=== PATIENT | female | born 1955 | race Caucasian/White ===

== ENCOUNTER 2020-01-28 15:21 | Emergency (ER) | payer MEDICARE, SELFPAY ==
--- NOTE | ~2020-01-28 | XR_ITS ---
XR ankle RT min 3V DATE: 01/28/2020 15:52 INDICATION: Fell 2 days ago. Pain, swelling, bruising of right ankle. TECHNIQUE: 4 views COMPARISON: None FINDINGS: There is a minimally displaced comminuted fracture of the lateral malleolus. There is overl benito lateral soft tissue swelling. The posterior malleolus and the medial malleolus are intact. Ankle mortise is preserved. Plantar calcaneal enthesopathy. Short fourth metatarsal bone. IMPRESSION: Minimally displaced comminuted fracture of the lateral malleolus Reviewed, dictated and finalized at location A.
[2020-01-28 15:30] VITALS: BP 101/61; PULSE 72; RESP 20; TEMP 36.9; O2SAT 100
--- NOTE | 2020-01-28 15:53 | ED.LOWEXIN ---
HPI - Extremity Injury (Lower) General Chief Complaint: Extremity Injury, Lower Stated Complaint: rt ankle injury Time Seen by Provider: 01/28/20 15:53 Source: patient and RN notes reviewed Mode of arrival: ambulatory Limitations: no limitations History of Present Illness HPI Narrative: 64-year-old female presents with concern for right ankle injury. Reports she tripped and fell on a wet parking lot 2 days ago. 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 Reports right ankle pain, swelling, bruising. She has been walking on the ankle since her injury. MD complaint: ankle injury Related Data Home Medications Medication Instructions Recorded Confirmed atorvastatin 40 mg PO HS 01/28/20 01/28/20 digoxin 125 mcg PO DAILY 01/28/20 01/28/20 hydrochlorothiazide 12.5 mg PO DAILY 01/28/20 01/28/20 metoprolol tartrate 100 mg PO DAILY 01/28/20 01/28/20 verapamil 120 mg PO DAILY 01/28/20 01/28/20 warfarin 2.5 mg PO DAILY 01/28/20 01/28/20 Allergies Allergy/AdvReac Type Severity Reaction Status Date / Time No Known Allergies Allergy Verified 01/28/20 15:37 Review of Systems Review of Systems: Narrative: CONSTITUTIONAL: Denies malaise, chills, sweats, or fever. CARDIOVASCULAR: Denies chest pain, palpitations RESPIRATORY: Denies dyspnea. SKIN: Reports bruising and swelling MUSCULOSKELETAL: Reports right ankle pain NEUROLOGIC: Denies numbness, weakness All systems reviewed & are unremarkable except as noted in HPI and below PMFSH Social History Social History Smoking status: Never smoker Alcohol intake: never Comments At time of signature, agree with nursing past medical, surgical, social and family history. There is no relevant family history pertinent to the presenting complaint Exam Narrative: Exam Narrative: GENERAL: Well-appearing, well-nourished, and in no acute distress. HEAD: Normocephalic, atraumatic. EYES: PERRLA, conjunctivae clear NECK: Supple. CHEST: Speaks in full sentences. No respiratory distress. HEART: Regular rate and rhythm. Normal and equal peripheral pulses. EXTREMITIES: Right ankle has normal strength and sensation, normal range of motion. Moderate ecchymosis to the lateral ankle and dorsal aspect of foot, lateral ankle edema. 5/5 strength with ankle and digit flexion and extension. Normal sensation with sensitivity to light touch and pain. No open wounds, no skin tenting, no devitalized tissue or atrophy, no trophic changes, no obvious deformity, alignment normal, no point tenderness, nearby joints and structures intact. Distal pulses palpable and equal bilaterally, skin warm, dry, pink. Capillary refill less than 3 seconds. SKIN: Warm, dry, no rash. NEURO: Alert and oriented x3. PSYCH: Normal mood and affect Course Course Emergency Course: Patient is aware of diagnosis, understands and agrees to treatment plan. Anticipatory guidance given. Patient agrees to follow-up as directed and is aware of reasons to seek care at the emergency department. Portions of this record may have been created with voice recognition software Vital Signs Vital signs: Vital Signs Temperature 98.5 F 01/28/20 15:30 Pulse Rate 72 01/28/20 15:30 Respiratory Rate 20 01/28/20 15:30 Blood Pressure 101/61 01/28/20 15:30 Pulse Oximetry 100 01/28/20 15:30 Temperature 98.5 F 01/28/20 15:30 Pulse Rate 72 01/28/20 15:30 Respiratory Rate 20 01/28/20 15:30 Blood Pressure 101/61 01/28/20 15:30 Pulse Oximetry 100 01/28/20 15:30 Reviewed. Procedures Orthopedic Splinting/Casting Injury #1: Splinting/Casting Date: 01/28/20 Splinting/Casting Time: 16:00 Side: right Lower Extremity Injury Location: ankle OCL: short leg Pre-Procedure Neuro Vascular Exam: normal Post-Procedure Neuro Vascular Exam: normal Other Orthopedic Equipment: crutches
== END 2020-01-28 16:30 | disposition home or self-care (01) ==
PROVIDERS: Emergency Provider Nurse Practitioner; PCP Internal Medicine
DX: S82.61XA Displaced fracture of lateral malleolus of right fibula, initial encounter for closed fracture (principal); W01.0XXA Fall on same level from slipping, tripping and stumbling without subsequent striking against object, initial encounter; Z91.81 History of falling; I48.91 Unspecified atrial fibrillation; E78.00 Pure hypercholesterolemia, unspecified; I10 Essential (primary) hypertension
CPT/HCPCS: 29515; 73610; 99214; G0463

== ENCOUNTER → 2020-12-24 16:07 | Outpatient (CLI) | payer MEDICARE, OTHER, SELFPAY ==
--- NOTE | ~2020-12-24 | XR_ITS ---
EXAMINATION: XR knee RT 3V DATE: 12/24/2020 16:47 INDICATION: One month of anterior and medial right knee pain TECHNIQUE: Weight bearing anteroposterior, lateral and sunrise views of the right knee were obtained COMPARISON: 10/03/2008 FINDINGS: Alignment is normal. No fracture. Mild joint space narrowing in the medial and patellofemoral compar tments and small marginal osteophytes in all 3 compartments. Soft tissues are unremarkable. No right knee joint effusion. IMPRESSION: 1. Negligible progression in still mild medial and patellofemoral compartment predominant tricompartm ental osteoarthritis. Reviewed, dictated and finalized at location A. TRANSFER TECHNICIAN IMPRESSION: 1. Negligible progression in still mild medial and patellofemoral compartment p redominant tricompartmental osteoarthritis.
== END ==
PROVIDERS: Visit Provider Internal Medicine
DX: M25.561 Pain in right knee (principal)
CPT/HCPCS: 73562

== ENCOUNTER → 2020-12-26 09:57 | Outpatient (CLI) | payer MEDICARE, OTHER, SELFPAY ==
--- NOTE | ~2020-12-26 | MR_ITS ---
EXAMINATION: MR lumbar spine wo con DATE: 12/26/2020 10:42 INDICATION: Low back pain. Malignant neoplasm of the spinal cord. Tumor removed 14 years ago. TECHNIQUE: Magnetic resonance imaging (MRI) of the lumbar spine was performed without intravenous con trast. Sequences included sagittal T2-weighted FSE, sagittal T2-weighted FS FSE, sagittal T1-weighted FSE, and axial T2-weighted FSE. COMPARISON: None FINDINGS: There is 6 degrees dextrocurvature of thoracolumbar spine. There is 3 mm anterolisthesis of L3 on L4 and 6 mm anterolisthesis of L4 on L5. Vertebral body heights are normal. There is mildly de creased disc at L2-L3 and L3-L4 and L4-L5. There is ligamentum flavum hypertrophy at the disc levels from L2-L3 through L4-L5. The spinal cord is thin with increased T2-weighted signal intensity at T12, consistent with myelomalacia. The conus medullaris is at L1. The following disc levels are specifica lly discussed: L1-L2: The disc does not extend beyond the endplate margin. There is moderate bilateral facet joint o steoarthritis. There is no neural foraminal stenosis. There is no central canal stenosis. L2-L3: The disc is bulging and has an annular fissure. There is severe bilateral facet joint osteoart hritis. There is mild bilateral neural foraminal stenosis. There is mild central canal stenosis. L3-L4: The disc is bulging. There is severe bilateral facet joint osteoarthritis. There is mild bilat eral neural foraminal stenosis. There is mild central canal stenosis. L4-L5: The disc is bulging. There is severe bilateral facet joint osteoarthritis. There is moderate b ilateral neural foraminal stenosis. There is moderate central canal stenosis. L5-S1: The disc is mildly bulging. There is severe bilateral facet joint osteoarthritis. There is mil d bilateral neural foraminal stenosis. There is no central canal stenosis. IMPRESSION: 1. Moderate lumbar spondylosis. 2. 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 Reviewed, dictated and finalized at location A. UREUX PRINTER
== END ==
PROVIDERS: PCP Internal Medicine; Visit Provider Internal Medicine
DX: C72.0 Malignant neoplasm of spinal cord (principal); M47.896 Other spondylosis, lumbar region
CPT/HCPCS: 72148

== ENCOUNTER 2022-01-30 14:37 | Outpatient (CLI) | payer MEDICARE, SELFPAY ==
[2022-01-30 16:14] LABS: Albumin Level 4.9 g/dL (3.5-5.1); Anion Gap 9 mmol/L (8-16); Blood Urea Nitrogen 22 mg/dL (7-17); Calcium 10.7 mg/dL (8.4-10.2); Carbon Dioxide 28 mmol/L (22-30); Chloride 101 mmol/L (98-107); Estimated Glomerular Filt Rate > 60; Glucose 105 mg/dL (65-110); Phosphorus 3.6 mg/dL (2.5-4.5); Potassium 4.1 mmol/L (3.4-5.0); Sodium 138 mmol/L (137-145)
[2022-01-30 16:31] LABS: Parathyroid Intact 135.9 pg/mL (7.5-53.5)
[2022-01-30 16:32] LABS: Vitamin D 25 Hydroxy 41.8 ng/mL
[2022-01-30 16:50] LABS: Thyroid Stimulating Hormone 0.641 uIU/mL (0.465-4.680)
[2022-02-01 20:06] LABS: Glutamic acid decarboxylase AA <5 IU/mL (<5)
[2022-02-02 04:53] LABS: Ionized Calcium 5.5 mg/dL (4.8-5.6)
[2022-02-02 06:12] LABS: C-Peptide 2.44 ng/mL (0.80-3.85)
== END 2022-01-30 14:38 | disposition home or self-care (01) ==
PROVIDERS: PCP Internal Medicine; Visit Provider Internal Medicine Endocrinology, Diabetes & Metabolism
DX: E83.52 Hypercalcemia (principal); M85.80 Other specified disorders of bone density and structure, unspecified site; E11.65 Type 2 diabetes mellitus with hyperglycemia; I48.91 Unspecified atrial fibrillation
CPT/HCPCS: 36415; 80069; 82306; 82330; 83970; 84443; 84681; 86341

== ENCOUNTER → 2022-09-01 11:03 | Outpatient (CLI) | payer MEDICARE, OTHER, SELFPAY ==
--- NOTE | ~2022-09-01 | MM_ITS ---
EXAMINATION: MM screening lynette BI w lloyd HISTORY: Screening TECHNIQUE: Craniocaudal and mediolateral oblique 3-D tomosynthesis images were obtained and synthetic 2-D images were generated. CAD analysis was submitted and interpreted. COMPARISON: Comparison to multiple prior studies sequentially, with oldest reviewed study dated 08/17. BREAST PARENCHYMAL COMPOSITION: There are scattered areas of fibroglandular density. FINDINGS: Bilateral breast asymmetries are stable. There is no evidence of suspicious mass, calcifica tion, or architectural distortion to suggest malignancy in either breast. There has been no suspiciou s interval change. IMPRESSION: 1. No mammographic evidence of malignancy. 2. Recommend routine screening mammography in one year. BI-RADS Category 1: Negative Reviewed, dictated and finalized at location A.
--- NOTE | ~2022-09-01 | DEXA_ITS ---
Bone Density Report Name: AUREA GALVAN Age: 67 Sex: Female Ethnicity: White Date of : 1955 Indication: osteopenia; prior fracture; asthma or emphysema; postmenopausal Referring Provider: CHANTELLE, WESTON Study: Bone densitometry was performed. Exam Date: September 01, 2022 Accession number: [id number] Bone Density: Region BMD T-score Z-score Classification AP Spine (L1-L4) 0.922 -1.1 0.9 Osteopenia Femoral Neck (Left) 0.650 -1.8 0.0 Osteopenia Total Hip (Left) 0.751 -1.6 -0.1 Osteopenia Femoral Neck (Right) 0.734 -1.0 0.7 Normal Total Hip (Right) 0.816 -1.0 0.4 Normal Total Hip Mean 0.784 -1.3 0.2 Osteopenia World Health Organization criteria for BMD impression classify patients as: Normal (T-score at or above -1.0), Osteopenia (T-score between -1.0 and -2.5), or Osteoporosis (T-score at or below -2.5). 10-year Fracture Risk(1): Major Osteoporotic Fracture 16% Hip Fracture 2.5% Reported Risk Factors: [place] (), Neck BMD=0.650, BMI=28.3, previous fracture (1) FRAX(R) Version 3.08. Fracture probability calculated for an untreated patient. Fracture probability may be lower if the patient has received treatment. Previous Exams: Region Exam Age BMD T-score BMD Change BMD Change Date g/cm2 vs Baseline vs Previous AP Spine(L1-L4) 09/01/2022 67 0.922 -1.1 0.076* 0.076* 02/03/2019 63 0.847 -1.8 Total Hip(Left) 09/01/2022 67 0.751 -1.6 0.010 0.010 02/03/2019 63 0.740 -1.7 Total Hip(Right) 09/01/2022 67 0.816 -1.0 -0.025 -0.025 02/03/2019 63 0.842 -0.8 *Denotes significance at 95% confidence level, LSC for AP Spine = 0.022 g/cm2, LSC for Total Hip = 0.027 g/cm2 Clinical Information Provided by Patient: Has had a low trauma fracture Has used the following medications: Vitamin D, MTV Has the following medical conditions: Asthma or Emphysema Patient maximum height was 63.0 Menopause Age: 51 No regular weight bearing exercise Drinks caffeinated beverages Onset of menses at age 10 Number of children 1 Impression: The patient has low bone mass, based on the Left Femoral Neck T-score. The patient has an estimated ten-year risk of hip fracture of 2.5% and an estimated ten-year risk of major fracture of 16%, based on the WHO FRAX algorithm. The patient has risk factors, including: previous fracture. No significant bone loss was observed. Discussion:
== END ==
PROVIDERS: PCP Internal Medicine; Visit Provider Nurse Practitioner
DX: Z12.31 Encounter for screening mammogram for malignant neoplasm of breast (principal); M85.88 Other specified disorders of bone density and structure, other site; M85.852 Other specified disorders of bone density and structure, left thigh; M85.851 Other specified disorders of bone density and structure, right thigh
CPT/HCPCS: 77063; 77067; 77080

== ENCOUNTER 2022-10-24 08:05 | Outpatient (CLI) | payer MEDICARE, SELFPAY ==
[2022-10-24 09:03] LABS: Anion Gap 5 mmol/L (8-16); Blood Urea Nitrogen 15 mg/dL (7-17); Carbon Dioxide 29 mmol/L (22-30); Chloride 106 mmol/L (98-107); Estimated Glomerular Filt Rate > 60; Glucose 139 mg/dL (65-110); Potassium 4.3 mmol/L (3.4-5.0); Sodium 140 mmol/L (137-145)
[2022-10-24 09:54] LABS: Digoxin < 0.5 ng/mL (0.8-2.0)
== END 2022-10-24 08:06 | disposition home or self-care (01) ==
PROVIDERS: Anesthesiology; PCP Internal Medicine; Visit Provider Surgery
DX: E11.65 Type 2 diabetes mellitus with hyperglycemia (principal); Z51.81 Encounter for therapeutic drug level monitoring; Z01.818 Encounter for other preprocedural examination
CPT/HCPCS: 36415; 80048; 80162

== ENCOUNTER 2022-10-29 01:45 | Day surgery (SDC) | payer MEDICARE, SELFPAY ==
[2022-10-20 11:23] VITALS: BMI 28.4
--- NOTE | 2022-10-20 11:39 | PC.NURSE ---
Report to the Outpatient Waiting Room, entrance under the green pavilion located off [facility], at time _1130_ on date _10/29/22_. Planned Procedure Time: _1:30 PM_. Time changes happen often and if your time is changed the preop area will call you the afternoon before. - You and your visitor will be asked to self-screen and do not enter if you have any COVID symptoms. - Only one visitor is requested with a max of two and NO children visitors are allowed at this time. - The patient visitor may be requested to leave or wait in car when not with patient due to distancing restrictions. - A mask is optional within the hospital. Patients may have clear liquids (water, carbonated beverages, clear teas, apple juice) until 3 hours prior to surgery (1030 AM) with a maximum of 20 ounces. - No food from midnight until time of surgery Take the following medications with a SIP of water the morning of surgery: _DIGOXIN, METOPROLOL, VERAPAMIL, BREO INHALER_ Medications to discontinue per DR. SOSA - _PRADAXA 3 DAYS PRIOR TO SURGERY, Date to take last dose 10/25/22_ Please no make-up, nail slovenian, hairspray, perfume, deodorant, or body powder the day of surgery. No jewelry (including any body piercings) or valuables the day of surgery, leave them at home. Please take a shower or bath the night before, or the morning of, surgery with an antibacterial soap. Wear comfortable, loose fitting clothing. - Jewelry must be removed prior to entering the operating room. Rings and piercings that are not removed may be cut off. - The hospital will not accept responsibility for valuables. - Please leave all valuables, including medications, at home the day of surgery. If you are going home after surgery, a licensed truck driver instructor must drive you home. - NO public transportation without another adult if you receive anesthesia. - We recommend that an adult stay with you for 24 hours following discharge. - We also recommend that you do not drive, make important decision, drink alcoholic beverages, or take any drugs that were not prescribed by your health care provider for at least 24 hours after your discharge time. Follow any additional instructions given to you from your surgeon. If you or anyone in your household have experienced Covid symptoms in the past week, please notify your surgeon or the nurse liaison at the phone number below for possible testing. Telephone instructions given to _PATIENT_and asked if any additional questions and then verbalized understanding. Patient advised to call surgeon office or pre surgery nurse liaison [phone] if any additional questions.
[2022-10-29] VITALS (8 sets, daily range): BP systolic 126–157; BP diastolic 59–80; PULSE 59–77; RESP 16; TEMP 36.3–37.1; O2SAT 98–100
[2022-10-29] MEDS: LACTATED RINGERS 1,000 ML 30 ML IV CONT (11:30)
[2022-10-29 11:31] LABS: Glucose Point of Care 120 mg/dl (65-105)
--- NOTE | 2022-10-29 11:45 | WPDANESEPPF ---
Anes - Initial Pre Proc Eval Procedure: Operation Date: 10/29/22 13:30 Proposed Procedures p Excision of Left Posterior Shoulder Mass - Shan Mcqueen DO Date/Time: 10/29/22 11:45 Surgeon: Shan Mcqueen DO Pre Op Diagnosis: left shoulder mass 10cm Patient Data Age: 67 Gender: F Height: 1.57 m Weight: 70 kg Last Vital Signs Temp 37.1 C 10/29/22 11:30 Pulse 77 10/29/22 11:30 Resp 16 10/29/22 11:30 BP 147/65 H 10/29/22 11:30 Pulse Ox 100 10/29/22 11:30 O2 Del Method Room Air 10/29/22 11:30 Allergies Allergy/AdvReac Type Severity Reaction Status Date / Time topiramate [From TopiraLogRhythm] AdvReac Intermediate HAIR LOSS Verified 10/29/22 11:39 Home Medications Medication Instructions Recorded Confirmed Type atorvastatin 40 mg tablet 40 mg PO HS 01/28/20 10/29/22 History digoxin 125 mcg (0.125 mg) tablet 125 mcg PO DAILY 01/28/20 10/29/22 History hydrochlorothiazide 12.5 mg tablet 12.5 mg PO DAILY 01/28/20 10/29/22 History metoprolol tartrate 100 mg tablet 200 mg PO BID 01/28/20 10/29/22 History verapamil 120 mg tablet 120 mg PO DAILY 01/28/20 10/29/22 History dabigatran etexilate 75 mg capsule 75 mg PO BID 12/24/20 10/29/22 History (Pradaxa) levalbuterol tartrate 45 2 inh inhalation Q6H PRN shortness 03/01/21 10/29/22 Rx mcg/actuation aerosol inhaler of breath or wheezing #15 grams flash glucose scanning reader #1 ea 07/23/21 10/29/22 Rx (FreeStyle Mateo 14 Day [place]) flash glucose sensor (FreeStyle See Rx Instructions .Route 06/24/22 10/29/22 Rx Mateo 14 Day Sensor kit) .COMPLEX #1 kit Breo Ellipta 100 mcg-25 mcg/dose 1 inh inhalation Q24H #60 ea 07/22/22 10/29/22 Rx powder for inhalation (fluticasone furoate-vilanterol) empagliflozin 25 mg tablet See Rx Instructions .Route 10/10/22 12/14/22 Rx (Jardiance) .COMPLEX #90 tabs metformin 500 mg tablet 1,000 mg PO BIDWMEAL 90 days #360 09/22/22 10/29/22 Rx tabs Laboratory Tests 10/29/22 11:27 POC Capillary Glucose 120 mg/dl H mg/dl (65-105) Patient hx anesthesia problems: none Family hx anesthesia problems: none Results Review: All pre-operative results and documents have been reviewed as part of the pre-operative evaluation. [facility] Past Medical History Medical History (Updated 10/29/22 @ 11:50 by Eagle Fabian MD) Afib Antiplatelet or antithrombotic long-term use Asthma Body mass index (BMI) 23 or greater (08/23/19) Chronic atrial fibrillation Essential (primary) hypertension Headache Hx of fci use of blood thinners Hypercalcemia Hyperglycemia Hypertension Mass of skin of left shoulder TONEY (obstructive sleep apnea) Osteopenia Paroxysmal atrial fibrillation Pure hypercholesterolemia, unspecified Seasonal allergies Sleep apnea Spinal cord ependymoma Spinal stenosis of lumbar region Trigger finger, right middle finger Type 2 diabetes mellitus Type 2 diabetes mellitus with hyperglycemia, without long-term current use of insulin Vision loss Surgical History Surgical History History of surgical procedure on eye proper using laser Family History Family History Father Family history of chronic obstructive pulmonary disease, Onset Age: 87 Patient's father is Sibling Family history of atrial fibrillation Mother Patient's mother is Acute myocardial infarction, Onset Age: 64 Other Family history of tuberculosis Social History Social History (Reviewed 09/30/22 @ 13:59 by Juan Lei [facility]) Smoking status: Never smoker Second hand tobacco smoke exposure: No Alcohol intake: never Substance use: never Substance use type: does not use Living arrangements: with family Additional occupation/education comments: kang Spiritual care concerns: No Anes - Eval Final PreProcedu
--- NOTE | 2022-10-29 12:30 | PM.IMHP ---
H&P: HPI History of Present Illness Date/Time: 10/29/22 12:30 Chief Complaint: Left posterior shoulder mass Narrative: This is a 67-year-old woman who presents with a shoulder mass. She now presents for excision of the 10 cm left posterior shoulder mass. She reports no changes since last seen in the office. Review of Systems Review of Systems: All systems reviewed & are unremarkable except as noted in HPI and below Constitutional: Constitutional: Denies chills, Denies fever(s), Denies headache(s) and Denies weight loss Eyes: Eyes: Denies change in vision ENT: Denies dizziness, Denies headache(s), Denies neck mass and Denies throat swelling Cardiovascular: Cardiovascular: Denies chest pain, Denies lightheadedness and Denies dyspnea Respiratory: Respiratory: Denies cough, Denies dyspnea and Denies wheezing Gastrointestinal: Gastrointestinal: Denies abdominal pain, Denies change in bowel habits, Denies nausea and Denies vomiting Genitourinary: Genitourinary: Denies hematuria and Denies dysuria Musculoskeletal: Musculoskeletal: Reports as per HPI Integumentary/Breasts: Skin/Breast: Reports as per HPI Neurologic: Denies dizziness and Denies headache(s) Allergic/Immunologic: Allergic/Immunologic: Denies throat swelling and Denies wheezing [facility] Past Medical History Medical History (Updated 10/29/22 @ 11:50 by Eagle Fabian MD) Afib Antiplatelet or antithrombotic long-term use Asthma Body mass index (BMI) 23 or greater (08/23/19) Chronic atrial fibrillation Essential (primary) hypertension Headache Hx of senior living use of blood thinners Hypercalcemia Hyperglycemia Hypertension Mass of skin of left shoulder TONEY (obstructive sleep apnea) Osteopenia Paroxysmal atrial fibrillation Pure hypercholesterolemia, unspecified Seasonal allergies Sleep apnea Spinal cord ependymoma Spinal stenosis of lumbar region Trigger finger, right middle finger Type 2 diabetes mellitus Type 2 diabetes mellitus with hyperglycemia, without long-term current use of insulin Vision loss Surgical History Surgical History History of surgical procedure on eye proper using laser Family History Family History Father Family history of chronic obstructive pulmonary disease, Onset Age: 87 Patient's father is Sibling Family history of atrial fibrillation Mother Patient's mother is Acute myocardial infarction, Onset Age: 64 Other Family history of tuberculosis Social History Social History Smoking status: Never smoker Second hand tobacco smoke exposure: No Alcohol intake: never Substance use: never Substance use type: does not use Living arrangements: with family Additional occupation/education comments: kang Spiritual care concerns: No Meds Home Medications and Allergies Home Medications Medication Instructions Recorded Confirmed Type atorvastatin 40 mg tablet 40 mg PO HS 01/28/20 10/29/22 History digoxin 125 mcg (0.125 mg) tablet 125 mcg PO DAILY 01/28/20 10/29/22 History hydrochlorothiazide 12.5 mg tablet 12.5 mg PO DAILY 01/28/20 10/29/22 History metoprolol tartrate 100 mg tablet 200 mg PO BID 01/28/20 10/29/22 History verapamil 120 mg tablet 120 mg PO DAILY 01/28/20 10/29/22 History dabigatran etexilate 75 mg capsule 75 mg PO BID 12/24/20 10/29/22 History (Pradaxa) levalbuterol tartrate 45 2 inh inhalation Q6H PRN shortness 03/01/21 10/29/22 Rx mcg/actuation aerosol inhaler of breath or wheezing #15 grams flash glucose scanning reader #1 ea 07/23/21 10/29/22 Rx (FreeStyle Mateo 14 Day [place]) flash glucose sensor (FreeStyle See Rx Instructions .Route 06/24/22 10/29/22 Rx Mateo 14 Day Sensor kit) .COMPLEX #1 kit Breo Ellipta 100 mcg-25 mcg/dose 1 inh inhalation Q24H #60
--- NOTE | 2022-10-29 12:32 | WPDHPUPDATE1 ---
History and Physical Update Update Date/Time: 10/29/22 12:32 History and Physical has been reviewed, including an updated exam of the patient. There are NO changes in the patient's condition. Risks, benefits, and alternatives have been discussed and questions answered. Patient agrees to proceed with procedure.
[2022-10-29] MEDS: ceFAZolin 2 GM/D5W 50 ML 2 GM/50 ML BAG IVPB (12:48)
[2022-10-29] MEDS: BUPIVACAINE/EPINEPHRINE 0.5% 10 ML VIAL INFILTRATE (13:13)
--- NOTE | 2022-10-29 13:41 | W.PM.PROC2 ---
Procedure Note - Detailed Date of Procedure 10/29/22 Pre-op Diagnosis left shoulder mass 10cm Post-op Diagnosis Same Procedure Performed 1. Excision of 10 cm left posterior shoulder mass 2. Layered closure Surgeon Shan Mcqueen, DO Anesthesia General and Local (0.5% bupivacaine with epinephrine) Indications This is a 67-year-old woman who presented with an enlarging mass on her left posterior shoulder region. The mass has been present for at least a year. This appeared to be likely a lipoma. Discussions were made with the patient about treatment options and decision was made to proceed with excision of 10 cm left posterior shoulder mass. Findings The left posterior shoulder mass was completely excised. This had a lipomatous consistency. No other surrounding abnormalities were noted. A layered closure was performed using 2-0 Vicryl simple interrupted deep dermal sutures followed by 4-0 Monocryl running subcuticular suture. Description of Procedure Procedure as well as risks, benefits, and alternatives were discussed with the patient. Written consent was obtained and placed in chart prior to procedure. Patient was brought back to surgical suite. She was placed in supine position on the operating table. Time-out was done to confirm patient and procedure. She was then intubated by the anesthesia department. She was then repositioned to right lateral decubitus position. Her left shoulder area was prepped and draped in sterile fashion using chlorhexidine prep. 0.5% bupivacaine with epinephrine was infiltrated locally around the mass. A 6 cm oblique incision was made directly over the mass using a 15 blade scalpel. Electrocautery was used for hemostasis and for dissection around the mass. The mass was carefully dissected completely free from the surrounding subcutaneous attachments. It was completely excised and sent to the lab for pathology. The wound bed was then inspected and hemostasis was achieved with electrocautery. No other masses were identified. The skin edges came together without any significant tension. The deep dermis and subcutaneous space was then reapproximated using 2-0 Vicryl simple interrupted sutures. The skin of the incision was then approximated using 4-0 Monocryl running subcuticular suture. Exofin glue was then applied on top. The patient was then awakened from anesthesia, extubated, and transferred to recovery. Estimated Blood Loss 5 Pathology Yes (10 cm left posterior shoulder mass) Complications No immediate complications Condition Stable Disposition Same day [facility] Billing Surgery - Charge Forward: Surgery Billing
[2022-10-29 13:53] LABS: Glucose Point of Care 98 mg/dl (65-105)
== END 2022-10-29 15:40 | disposition home or self-care (01) ==
PROVIDERS: PCP Internal Medicine; Visit Provider Surgery
PROC: (CPT 24071; principal; 2022-10-29 13:30)
DX: D17.22 Benign lipomatous neoplasm of skin and subcutaneous tissue of left arm (principal); J45.909 Unspecified asthma, uncomplicated; I48.20 Chronic atrial fibrillation, unspecified; I10 Essential (primary) hypertension; G47.33 Obstructive sleep apnea (adult) (pediatric); E78.00 Pure hypercholesterolemia, unspecified; E11.9 Type 2 diabetes mellitus without complications; Z79.51 Long term (current) use of inhaled steroids; Z79.84 Long term (current) use of oral hypoglycemic drugs; Z79.01 Long term (current) use of anticoagulants
CPT/HCPCS: 24071; 82948; 88304; 88365; A9270; J0690; J1100; J2250; J2405; J2704; J3010; J7120

== ENCOUNTER → 2023-09-22 09:58 | Outpatient (CLI) | payer MEDICARE, OTHER, SELFPAY ==
--- NOTE | ~2023-09-22 | XR_ITS ---
EXAMINATION: XR lumbar spine 2-3V DATE: 09/22/2023 10:56 INDICATION: Low back pain TECHNIQUE: Flexion and extension lateral views of the lumbar spine were obtained. COMPARISON: 04/05/2006 FINDINGS: There are 8 mm of anterolisthesis of L4 on L5 in flexion and extension. There are 4 mm of a nterolisthesis of L3 on L4, new since the comparison examination. There is mild loss of intervertebra l disc space height at L4-5. The vertebral body heights are maintained. There is no fracture. There i s moderate facet joint osteoarthritis of the mid and lower lumbar spine. IMPRESSION: 1. Mild lumbar spondylosis without acute findings. Reviewed, dictated and finalized at location L. [employer]
--- NOTE | ~2023-09-22 | MR_ITS ---
MRI of the lumbar spine Clinical History: Radiculopathy Technique: Axial T2-weighted images, and sagittal T1-weighted, T2-weighted, and T2 fat-sat images wer e acquired. COMPARISON: 12/26/2020 Findings: No acute fracture seen. Stable 6 mm anterolisthesis of L4 over L5. Minimal grade 1 anteroli sthesis of L3 over L4 noted. No suspicious bone marrow signal abnormality seen. At L1-L2, there is no disc bulge or herniation. There is mild facet arthropathy. No central canal ilya nosis or neural foraminal narrowing. At L2-L3, there is mild disc bulge with moderate facet arthropathy. No central canal stenosis. There is moderate to severe bilateral neural foraminal narrowing. L3-L4, there is disc bulge with severe facet arthropathy. No chey central canal stenosis. There is m oderate bilateral neural foraminal narrowing. At L4-L5, disc bulge/uncovering and severe facet arthropathy result in severe spinal canal stenosis/t hecal sac compression. There is severe bilateral neural foraminal compromise. At L5-S1, there is minimal disc bulge with moderate to severe facet arthropathy. No central canal ilya nosis or neural foraminal narrowing. Paravertebral soft tissues are unremarkable. Impression: 6 mm anterolisthesis of L4 over L5. Minimal grade 1 anterolisthesis of L3 over L4. Severe degenerative spondylosis at L4-L5. Moderate to advanced degenerative spondylosis at L2-L3, L3- L4, and L5-S1. Reviewed, dictated and finalized at [facility]. ODS ANALYST DATA PROCESSING Impression: 6 mm anterolisthesis of L4 over L5. Minimal grade 1 anterolisthesis of L3 over L4. Severe degenerative spondylosis at L4-L5. Moderate to advanced degenerative spo ndylosis at L2-L3, L3-L4, and L5-S1.
== END ==
PROVIDERS: PCP Internal Medicine; Visit Provider Neurological Surgery
DX: M43.06 Spondylolysis, lumbar region (principal); M47.817 Spondylosis without myelopathy or radiculopathy, lumbosacral region; M54.16 Radiculopathy, lumbar region
CPT/HCPCS: 72100; 72148

== ENCOUNTER 2023-12-23 08:02 | Outpatient (CLI) | payer MEDICARE, SELFPAY ==
--- NOTE | ~2023-12-23 | MR_ITS ---
MRI of the thoracic spine Clinical History: Gait abnormality Technique: Axial T2-weighted and gradient images, and sagittal T1-weighted, T2-weighted, and STIR virgilio ges were acquired. Findings: There is no fracture or subluxation of the thoracic spine. Vertebral bodies maintain normal height and alignment. No suspicious bone marrow signal reality seen. Probable intraosseous hemangiom as noted. No significant disc bulge or herniation identified at any thoracic level. No spinal canal stenosis or cord compression identified. No epidural mass or collection seen. Paravertebral soft tissues are unremarkable. No abnormal postcontrast enhancement identified. Impression: No significant abnormality seen. Reviewed, dictated and finalized at [facility]. CTOR OF CONVENTION SERVICES Impression: No significant abnormality seen.
== END 2023-12-23 08:03 ==
LOC: MICIMG 08:04
PROVIDERS: PCP Neurological Surgery; Visit Provider Neurological Surgery
DX: R26.81 Unsteadiness on feet (principal); Z01.818 Encounter for other preprocedural examination
CPT/HCPCS: 72157; A9577

== ENCOUNTER 2024-05-10 10:49 | Outpatient (CLI) | payer MEDICARE, SELFPAY ==
--- NOTE | ~2024-05-10 | MM_ITS ---
EXAMINATION: MM screening [facility] BI w lloyd HISTORY: Screening mammogram TECHNIQUE: Craniocaudal and mediolateral oblique 3-D tomosynthesis images were obtained and synthetic 2-D images were generated. CAD analysis was submitted and interpreted. COMPARISON: 09/01/2022, 02/03/2019, 09/18/2015 BREAST PARENCHYMAL COMPOSITION:Not Dense. There are scattered areas of fibroglandular density. FINDINGS: There are multiple small low-density circumscribed masses bilaterally. No overtly suspiciou s mass, calcification, or architectural distortion are identified in either breast to suggest maligna ncy. There has been no suspicious interval change. IMPRESSION: No mammographic evidence of malignancy. Recommend routine screening mammography in one year. BI-RADS Category 2: Benign finding(s). Reviewed, dictated and finalized at [facility].
== END 2024-05-10 10:50 ==
LOC: MICIMG 10:51
PROVIDERS: PCP Obstetrics & Gynecology Gynecology; Visit Provider Obstetrics & Gynecology Gynecology
DX: Z12.31 Encounter for screening mammogram for malignant neoplasm of breast (principal)
CPT/HCPCS: 77063; 77067

== ENCOUNTER 2024-05-23 00:55 | Day surgery (SDC) | payer MEDICARE, SELFPAY ==
[2024-05-11 14:57] VITALS: BMI 27.8
--- NOTE | 2024-05-17 12:44 | PC.NURSE ---
Spoke with PATIENT regarding medications. Pt. verbalizes understanding that the last dose of PRADAXA is to be taken on 05/20/2024 and the Endoscopist will instruct them when to restart after the procedure.
[2024-05-23 07:26] VITALS: BP 135/84; PULSE 73; RESP 18; TEMP 36.1; O2SAT 100
[2024-05-23] MEDS: LACTATED RINGERS 1,000 ML 150 ML IV CONT (07:35)
--- NOTE | 2024-05-23 07:52 | WPDANESEPPF ---
Anes - Initial Pre Proc Eval Procedure: Operation Date: 05/23/24 08:30 Proposed Procedures p Screening Colonoscopy - Kingston Massey MD Date/Time: 05/23/24 07:52 Surgeon: Kingston Massey MD Pre Op Diagnosis: Neoplasm screening Patient Data Age: 69 Gender: F Height: 1.6 m Weight: 71.2 kg Last Vital Signs Temp 97 F L 05/23/24 07:26 Pulse 73 05/23/24 07:26 Resp 18 05/23/24 07:26 BP 135/84 05/23/24 07:26 Pulse Ox 100 05/23/24 07:26 O2 Del Method Room Air 05/23/24 07:26 Allergies Allergy/AdvReac Type Severity Reaction Status Date / Time topiramate [From [employer]] AdvReac Intermediate HAIR LOSS Verified 05/23/24 07:23 Home Medications Medication Instructions Recorded Confirmed Type atorvastatin 40 mg tablet 40 mg PO HS 01/28/20 05/11/24 History digoxin 125 mcg (0.125 mg) tablet 125 mcg PO DAILY 01/28/20 05/23/24 History metoprolol tartrate 100 mg tablet 200 mg PO BID 01/28/20 05/23/24 History fluticasone propionate 50 1 spray intranasal BID #16 grams 03/11/23 05/11/24 Rx mcg/actuation nasal spray,suspension (Flonase Allergy Relief) metformin 500 mg tablet 500 mg PO DAILY #90 tabs 07/23/23 05/11/24 Rx flash glucose scanning reader #1 ea 10/29/23 02/24/24 Rx (FreeStyle [place] [employer]) flash glucose sensor (FreeStyle #3 kits 11/04/23 02/24/24 Rx Mateo 14 Day Sensor kit) empagliflozin 25 mg tablet See Rx Instructions .Route 12/31/23 05/11/24 Rx (Jardiance) .COMPLEX #90 tabs dabigatran etexilate 150 mg capsule 150 mg PO BID 05/11/24 05/23/24 History fluticasone furoate 100 1 inh inhalation Q24H PRN 05/11/24 05/11/24 History mcg-vilanterol 25 mcg/dose Shortness Of Breath inhalation powder (Breo Ellipta) losartan 100 mg tablet 100 mg PO DAILY 05/11/24 05/11/24 History paroxetine HCl 10 mg tablet 10 mg PO DAILY 05/11/24 05/11/24 History verapamil 120 mg 24 hr 80 mg PO QPM 05/11/24 05/11/24 History capsule,extended release Patient hx anesthesia problems: none Family hx anesthesia problems: none Results Review: All pre-operative results and documents have been reviewed as part of the pre-operative evaluation. [facility] Past Medical History Medical History Afib Antiplatelet or antithrombotic long-term use Asthma Body mass index (BMI) 23 or greater (08/23/19) Chronic atrial fibrillation Essential (primary) hypertension Headache Hx of fdc use of blood thinners Hypercalcemia Hyperglycemia Hypertension Mass of skin of left shoulder TONEY (obstructive sleep apnea) Osteopenia Paroxysmal atrial fibrillation Pure hypercholesterolemia, unspecified Seasonal allergies Sleep apnea Spinal cord ependymoma Spinal stenosis of lumbar region Trigger finger, right middle finger Type 2 diabetes mellitus Type 2 diabetes mellitus with hyperglycemia, without long-term current use of insulin Vision loss Surgical History Surgical History H/O excision of mass excision of 10 cm left posterior shoulder mass, layered closure 10/29/22 History of surgical procedure on eye proper using laser Family History Family History Father Family history of chronic obstructive pulmonary disease, Onset Age: 87 Patient's father is Sibling Family history of atrial fibrillation Mother Patient's mother is Acute myocardial infarction, Onset Age: 64 Other Family history of tuberculosis Social History Social History Smoking status: Never smoker Second hand tobacco smoke exposure: No Alcohol intake: current Substance use: current Substance use type: does not use Lack of Transportation: No Lack of Food: Never True Current Housing: I Have Housing Concerned About Future H
--- NOTE | 2024-05-23 08:05 | PM.HPGS ---
History of Present Illness History of Present Illness Consent: Risks, benefits, and alternatives have been discussed and questions answered. Patient agrees to proceed with procedure. Chief complaint: Neoplasm screening Narrative: Oneida Pollack is a 69 year old female here for colonoscopy, last one 2012 Review of Systems Review of Systems: All systems reviewed & are unremarkable except as noted in HPI and below PMFSH Past Medical History Medical History (Updated 05/23/24 @ 08:05 by Kingston Massey MD) Afib Antiplatelet or antithrombotic long-term use Asthma Body mass index (BMI) 23 or greater (08/23/19) Chronic atrial fibrillation Colon cancer screening Essential (primary) hypertension Headache Hx of half-way use of blood thinners Hypercalcemia Hyperglycemia Hypertension Mass of skin of left shoulder TONEY (obstructive sleep apnea) Osteopenia Paroxysmal atrial fibrillation Pure hypercholesterolemia, unspecified Seasonal allergies Sleep apnea Spinal cord ependymoma Spinal stenosis of lumbar region Trigger finger, right middle finger Type 2 diabetes mellitus Type 2 diabetes mellitus with hyperglycemia, without long-term current use of insulin Vision loss Surgical History Surgical History H/O excision of mass excision of 10 cm left posterior shoulder mass, layered closure 10/29/22 History of surgical procedure on eye proper using laser Family History Family History Father Family history of chronic obstructive pulmonary disease, Onset Age: 87 Patient's father is Sibling Family history of atrial fibrillation Mother Patient's mother is Acute myocardial infarction, Onset Age: 64 Other Family history of tuberculosis Social History Social History Smoking status: Never smoker Second hand tobacco smoke exposure: No Alcohol intake: current Substance use: current Substance use type: does not use Lack of Transportation: No Lack of Food: Never True Current Housing: I Have Housing Concerned About Future Housing: No Difficulty Paying Gas/Electric Bills: No Difficulty Paying for Meds: No Currently Unemployed: No Education: High School Diploma/GED Difficulty w/ Childcare or Family Care: No Living arrangements: with family Occupation/Education: occupation Additional occupation/education comments: [employer] Gender identity (if verbalized by the patient): Female Sexual Orientation (if Verbalized by the Patient): Straight or Heterosexual Spiritual care concerns: No Meds Home Medications and Allergies Home Medications Medication Instructions Recorded Confirmed Type atorvastatin 40 mg tablet 40 mg PO HS 01/28/20 05/11/24 History digoxin 125 mcg (0.125 mg) tablet 125 mcg PO DAILY 01/28/20 05/23/24 History metoprolol tartrate 100 mg tablet 200 mg PO BID 01/28/20 05/23/24 History fluticasone propionate 50 1 spray intranasal BID #16 grams 03/11/23 05/11/24 Rx mcg/actuation nasal spray,suspension (Flonase Allergy Relief) metformin 500 mg tablet 500 mg PO DAILY #90 tabs 07/23/23 05/11/24 Rx flash glucose scanning reader #1 ea 10/29/23 02/24/24 Rx (FreeStyle Mateo 2 [place]) flash glucose sensor (FreeStyle #3 kits 11/04/23 02/24/24 Rx Mateo 14 Day Sensor kit) empagliflozin 25 mg tablet See Rx Instructions .Route 12/31/23 05/11/24 Rx (Jardiance) .COMPLEX #90 tabs dabigatran etexilate 150 mg capsule 150 mg PO BID 05/11/24 05/23/24 History fluticasone furoate 100 1 inh inhalation Q24H PRN 05/11/24 05/11/24 History mcg-vilanterol 25 mcg/dose Shortness Of Breath inhalation powder (Breo Ellipta) losartan 100 mg tablet 100 mg PO DAILY 05/11/24 05/11/24 History paroxetine HCl 10 mg tablet 10 mg PO DAILY 05/11/24 05/11/24 History vera
[2024-05-23 08:29] VITALS: BP 95/44; PULSE 72; RESP 22; O2SAT 97
[2024-05-23 08:39] VITALS: BP 112/62; PULSE 67; RESP 18; O2SAT 100
[2024-05-23 08:49] VITALS: BP 119/64; PULSE 66; RESP 19; O2SAT 98
== END 2024-05-23 08:58 | disposition home or self-care (01) ==
PROVIDERS: Referring Provider Neurological Surgery; Visit Provider Internal Medicine Gastroenterology
PROC: 0DJD8ZZ Inspection of Lower Intestinal Tract, Via Natural or Artificial Opening Endoscopic (ICD-10-PCS; CPT 45378; principal; 2024-05-23 08:30)
DX: Z12.11 Encounter for screening for malignant neoplasm of colon (principal); K63.5 Polyp of colon; K57.30 Diverticulosis of large intestine without perforation or abscess without bleeding; J45.909 Unspecified asthma, uncomplicated; I10 Essential (primary) hypertension; E83.52 Hypercalcemia; G47.33 Obstructive sleep apnea (adult) (pediatric); I48.0 Paroxysmal atrial fibrillation; E78.00 Pure hypercholesterolemia, unspecified; G95.89 Other specified diseases of spinal cord; E11.65 Type 2 diabetes mellitus with hyperglycemia; Z79.84 Long term (current) use of oral hypoglycemic drugs; Z79.51 Long term (current) use of inhaled steroids; Z98.890 Other specified postprocedural states; Z82.49 Family history of ischemic heart disease and other diseases of the circulatory system
CPT/HCPCS: 45385; 45380; 88305; J2704; J7120

== ENCOUNTER 2024-06-01 12:09 | Emergency (ER) | payer MEDICARE, SELFPAY ==
--- NOTE | ~2024-06-01 | XR_ITS ---
EXAMINATION: XR hand LT min 3V DATE: 06/01/2024 13:38 INDICATION: Left hand and third finger pain post fall TECHNIQUE: Posteroanterior, oblique and lateral views of the left hand were obtained. COMPARISON: None. FINDINGS: Diffuse osteopenia. Bone alignment is normal. The left fourth and fifth metacarpals are likely develo pmentally short. No fracture. Polyarticular osteoarthritis, severe at the left second and third dista l interphalangeal joints, moderate severity at the first interphalangeal, fourth and fifth distal int erphalangeal and third metacarpophalangeal joints and mild at majority the remaining joints in the le ft hand and wrist. There is mild soft tissue swelling about the hand most prominent at the base of th e third digit. IMPRESSION: 1. No acute osseous abnormality. 2. Polyarticular osteoarthritis, moderate to severe at the distal interphalangeal joints. 3. Prominent diffuse osteopenia. Reviewed, dictated and finalized at location A. IMPRESSION: 1. No acute osseous abnormality. 2. Polyarticular osteoarthritis, moderate to severe at the distal interphalange al joints. 3. Prominent diffuse osteopenia.
--- NOTE | ~2024-06-01 | XR_ITS ---
EXAMINATION: XR knee LT 3V DATE: 06/01/2024 13:38 INDICATION: Left knee pain post fall TECHNIQUE: Anteroposterior, oblique and crosstable lateral views of the left knee were obtained COMPARISON: None. FINDINGS: Alignment is normal. No fracture. Joint spaces appear normal on nonweightbearing imaging. No joint e ffusion/layering lipohemarthrosis. Soft tissues are unremarkable. IMPRESSION: 1. No left knee joint effusion or osseous abnormality. Reviewed, dictated and finalized at location A.
--- NOTE | ~2024-06-01 | XR_ITS ---
Clinical Indication: Rib pain PA and lateral views of the chest, and AP/oblique views of the right ribs: Comparison: 04/28/2019 Findings: The lungs are clear, without evidence of focal consolidation or pleural effusion. Cardiome diastinal silhouette is stable, enlarged. Bones and soft tissues are unremarkable. Impression: Clear lungs. Stable cardiomegaly. No rib fracture seen. Reviewed, dictated and finalized at location . Impression: Clear lungs. Stable cardiomegaly. No rib fracture seen.
[2024-06-01 12:29] VITALS: BP 120/78; PULSE 66; RESP 16; TEMP 36.6; O2SAT 100
--- NOTE | 2024-06-01 13:18 | ED.FALL ---
HPI - Fall General Chief Complaint: Fall Stated Complaint: Fall Time Seen by Provider: 06/01/24 12:38 History of Present Illness HPI Narrative: 69-year-old female history of type 2 diabetes, AFib anticoagulated on Pradaxa, hypertension, and right footdrop due to lumbar spinal stenosis, presents to the emergency room for multiple injuries sustained in a mechanical ground level fall last night. Patient states he was attempting to prevent herself from falling over her dog last night she fell backwards twisting her left knee and striking her right ribs on the floor. complains of pain to her 3rd and 4th fingers on the left hand, left knee, right sided chest wall. Related Data Home Medications Medication Instructions Recorded Confirmed atorvastatin 40 mg tablet 40 mg PO HS 01/28/20 05/11/24 digoxin 125 mcg (0.125 mg) tablet 125 mcg PO DAILY 01/28/20 05/23/24 metoprolol tartrate 100 mg tablet 200 mg PO BID 01/28/20 05/23/24 dabigatran etexilate 150 mg capsule 150 mg PO BID 05/11/24 05/23/24 fluticasone furoate 100 1 inh inhalation Q24H PRN 05/11/24 05/11/24 mcg-vilanterol 25 mcg/dose Shortness Of Breath inhalation powder (Breo Ellipta) losartan 100 mg tablet 100 mg PO DAILY 05/11/24 05/11/24 paroxetine HCl 10 mg tablet 10 mg PO DAILY 05/11/24 05/11/24 verapamil 120 mg 24 hr 80 mg PO QPM 05/11/24 05/11/24 capsule,extended release Allergies Allergy/AdvReac Type Severity Reaction Status Date / Time topiramate [From Topiragen] AdvReac Intermediate HAIR LOSS Verified 06/01/24 12:39 Review of Systems Review of Systems: ROS unremarkable except for noted in HPI PMFSH Past Medical History Medical History Afib Antiplatelet or antithrombotic long-term use Asthma Body mass index (BMI) 23 or greater (08/23/19) Chronic atrial fibrillation Colon cancer screening Essential (primary) hypertension Headache 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 Hypercalcemia Hyperglycemia Hypertension Mass of skin of left shoulder TONEY (obstructive sleep apnea) Osteopenia Paroxysmal atrial fibrillation Pure hypercholesterolemia, unspecified Seasonal allergies Sleep apnea Spinal cord ependymoma Spinal stenosis of lumbar region Trigger finger, right middle finger Type 2 diabetes mellitus Type 2 diabetes mellitus with hyperglycemia, without long-term current use of insulin Vision loss Surgical History Surgical History H/O excision of mass excision of 10 cm left posterior shoulder mass, layered closure 10/29/22 History of surgical procedure on eye proper using laser Family History Family History Father Family history of chronic obstructive pulmonary disease, Onset Age: 87 Patient's father is Sibling Family history of atrial fibrillation Mother Patient's mother is Acute myocardial infarction, Onset Age: 64 Other Family history of tuberculosis Social History Social History Smoking status: Never smoker Second hand tobacco smoke exposure: No Alcohol intake: current Substance use: current Substance use type: does not use Lack of Transportation: No Lack of Food: Never True Current Housing: I Have Housing Concerned About Future Housing: No Difficulty Paying Gas/Electric Bills: No Difficulty Paying for Meds: No Currently Unemployed: No Education: High School Diploma/GED Difficulty w/ Childcare or Family Care: No Living arrangements: with family Occupation/Education: occupation Additional occupation/education comments: [employer] Gender identity (if verbalized by the patient): Female Sexual Orientation (if Verbalized by the Patient): Straight or Heterosexual Spiritual care concerns: No Exam Narrative: GENERAL: Well-a
[2024-06-01 14:15] VITALS: BP 145/75; PULSE 90; RESP 14; O2SAT 99
[2024-06-01 14:45] VITALS: BP 132/87; PULSE 80; RESP 19; O2SAT 97
== END 2024-06-01 14:45 | disposition home or self-care (01) ==
PROVIDERS: Emergency Provider Nurse Practitioner Family; PCP Internal Medicine
DX: S20.211A Contusion of right front wall of thorax, initial encounter (principal); S80.02XA Contusion of left knee, initial encounter; S60.032A Contusion of left middle finger without damage to nail, initial encounter; I48.0 Paroxysmal atrial fibrillation; I10 Essential (primary) hypertension; E11.9 Type 2 diabetes mellitus without complications; E78.00 Pure hypercholesterolemia, unspecified; J45.909 Unspecified asthma, uncomplicated; G47.33 Obstructive sleep apnea (adult) (pediatric); M85.80 Other specified disorders of bone density and structure, unspecified site; Z79.84 Long term (current) use of oral hypoglycemic drugs; Z79.899 Other long term (current) drug therapy; Z79.02 Long term (current) use of antithrombotics/antiplatelets; W18.39XA Other fall on same level, initial encounter
CPT/HCPCS: 71046; 71100; 73130; 73562; 99284

== ENCOUNTER 2024-08-01 08:00 | Outpatient (RCR) | payer MEDICARE, SELFPAY ==
--- NOTE | 2024-07-15 08:56 | OTOPEVAL1 ---
Assessment and note entered by BRADLEY White/Anoop, CATHIET OT Evaluation Information 07/15/24 Assessment Status Evaluation Diagnosis [id number] Subjective Information Patient fell 06/16/24 injuring her left middle finger. X-rays were negative for fracture. She reports residual pain, soreness, and stiffness that limits functional use of her left hand. Specifically gripping, pinching, and a cylindrical grasp on objects. She is avoiding using this finger at this time. She is right handed. Reported Pain Level Pain Score 2: Self Report Additional Pain Score Comments Patient reports she has constant ache, soreness in the left middle finger. She reports when she tries to use her finger, a cylindrical grasp on a cup for instance, she is unable to put pressure through that finger to grasp the cup due to pain. Assessment OT Clinical Summary Patient referred to OT following left middle finger injury about a month ago. She presents with residual stiffness, weakness, and pain that limits return to functional gripping and pinching with the left hand for ADLs. Skilled OT indicated for use of modalities, therapeutic exercise, and therapeutic activities to facilitate reduced pain, improved ROM, and improved strength of the left hand. Plan of Care Interventions Therapeutic Exercise,Manual Therapy,Ultrasound, Paraffin OT Services Indicated Yes Treatment Frequency and 1x/week for 6 visits Duration These treatments will address the objective and functional deficits as defined above. The patient will be advanced safely and appropriately in order for the patient to progress towards his/her prior level of function. Additional exercises will be introduced and as well as a comprehensive home exercise program upon discharge, if needed, ?to ensure carryover of functional gains achieved in the clinic. This treatment plan has been reviewed and agreement upon by the patient.
--- NOTE | 2024-07-15 08:56 | OPREHPOC ---
Outpatient Therapy Plan of Care This is a Multidisciplinary Plan of Care that may contain components documented by all disciplines (PT, OT, and ST.) OT Problem 1 OT Problem #1 Knowledge Deficit OT Goal 1 Goal / Goal Update 1. Patient to be independent with instructed materials. Target Visit 6 OT Problem 2 OT Problem #2 Pain OT Goal 1 Goal / Goal Update 1. Patient to report reduced pain in the left hand to 0/10 at rest and 4/10 at worst . OT Problem 3 OT Problem #3 Impaired Range of Motion OT Goal 1 Goal / Goal Update 1. Patient to be able to make a fist, touching all finger tips to the palm. 2. Patient to be able to make a hook fist, measuring 1 cm gap or less between the finger tips and the distal palmar crease. Target Visit 6 OT Problem 4 OT Problem #4 Impaired Strength OT Goal 1 Goal / Goal Update 1. 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
--- NOTE | 2024-08-08 10:07 | OTOPDC ---
Assessment and note entered by Marcellus Kohler, OTR/L, CHT OT Discharge Notification 08/08/24 OT Clinical Summary Patient was being seen for OT x4 visits for left middle finger sprain following a fall. She called today to cancel her remaining visits and requested to be discharged due to her passing away. Patient continued to experience pain with lateral stress on the ulnar side to the the PIP joint of the finger. She was independent with HEP. D/C OT at this time.
== END 2024-08-08 11:51 | disposition home or self-care (01) ==
LOC: ANHOT 08:00
PROVIDERS: PCP Internal Medicine; Visit Provider Internal Medicine
DX: S69.90XA Unspecified injury of unspecified wrist, hand and finger(s), initial encounter (principal)
CPT/HCPCS: 97018; 97110; 97140; 97165

== ENCOUNTER 2025-06-15 15:45 | Emergency (ER) | payer MEDICARE, SELFPAY ==
--- NOTE | ~2025-06-15 | CT_ITS ---
EXAMINATION: CT brain wo con DATE: 06/15/2025 16:15 INDICATION: Head injury post fall TECHNIQUE: Computed tomography (CT) of the head was performed without intravenous contrast. Sagittal and coronal reconstructions were performed. The mA was adjusted according to patient size. Iterative reconstruction technique was employed. The dose-length product was 605.33 mGy-cm. COMPARISON: head CT dated 06/06/2011 FINDINGS: Right frontal scalp hematoma along the superolateral right orbital rim. No fracture. No acute intracr anial hemorrhage, acute infarction or abnormal extra axial fluid collection. There is moderate scatte red white matter hypoattenuation consistent with chronic small vessel ischemic disease. Ventricles ar e normal and symmetric. No mass/mass effect. Changes of bilateral intraocular lens replacement. The o rbits and mastoid air cells are normal. Moderate mucosal thickening in the sphenoid sinuses which dem onstrates thickened sclerotic madrigal consistent with chronic sinusitis. IMPRESSION: 1. No fracture or acute intracranial process. 2. Moderate scattered mesenteric white matter hypoattenuation consistent with chronic small vessel is chemic disease. 3. Chronic sphenoid sinusitis. Reviewed, dictated and finalized at location A. IMPRESSION: 1. No fracture or acute intracranial process. 2. Moderate scattered mesenteric white matter hypoattenuation consistent with c hronic small vessel ischemic disease. 3. Chronic sphenoid sinusitis.
--- NOTE | ~2025-06-15 | XR_ITS ---
EXAMINATION: XR wrist RT 2V DATE: 06/15/2025 16:25 INDICATION: Right wrist injury post fall TECHNIQUE: Posteroanterior and lateral views of the right wrist were obtained. 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 Impacted extra articular fracture of the di stal right radial metaphysis resulting in mild dorsal angulation with 12 degrees dorsal tilt of the d istal articular surface. Minimal distraction of a lucent ulnar styloid avulsion fracture across the b ase of the ulnar styloid process. No other fractures identified. Polyarticular osteoarthritis, modera te severity at the third metacarpophalangeal joint and mild at the right wrist and many of the visual ized joints in the right hand. IMPRESSION: 1. Dorsally impacted extra-articular fracture of the distal right radius. 2. Nondisplaced ulnar styloid avulsion fracture. Reviewed, dictated and finalized at location A.
--- NOTE | ~2025-06-15 | XR_ITS ---
EXAMINATION: XR hand LT min 3V DATE: 06/15/2025 16:25 INDICATION: Left thumb pain TECHNIQUE: Posteroanterior, oblique and lateral views of the left hand were obtained. COMPARISON: None. FINDINGS: Likely developmentally short fourth and fifth metacarpals. Bone alignment is otherwise normal. No acu te fracture. Diffuse osteopenia. Polyarticular osteoarthritis, severe at the second and third distal interphalangeal joints, moderate severity at the first interphalangeal, fourth and fifth distal inter phalangeal and third proximal interphalangeal joints as well as at the third metacarpophalangeal join t and first carpal metacarpal joint. Mild osteoarthritis at the wrist, triscaphe and many of the melissa ining metacarpophalangeal and interphalangeal joints. Soft tissues are unremarkable. IMPRESSION: 1. Moderate to severe polyarticular osteoarthritis at the left hand. No acute osseous abnormality. Reviewed, dictated and finalized at location A. IMPRESSION: 1. Moderate to severe polyarticular osteoarthritis at the left hand. No acute o sseous abnormality.
--- NOTE | ~2025-06-15 | CT_ITS ---
EXAMINATION: CT cervical spine wo con DATE: 06/15/2025 16:15 INDICATION: Anticoagulated patient post fall with head injury TECHNIQUE: Computed tomography (CT) of the cervical spine was performed without intravenous contrast. The mA was adjusted according to patient size. Iterative reconstruction technique was employed. The dose-length product was 178.57 mGy-cm. COMPARISON: None FINDINGS: 12 degrees cervicothoracic dextrocurvature. Sagittal alignment is normal. Vertebral body heights are normal. No fracture. Mild to moderate osteoarthritis at the atlantoaxial articulation. Moderate disc height loss at C5-C6. Mild disc height loss at C4-C5 and C6-C7. Small posterior endplate osteophytes without significant central canal stenosis at C4-C5 and C5-C6. Severe bilateral uncovertebral osteoar thritis at C5-C6. Minimal to mild uncovertebral osteoarthritis throughout the remainder of the cervic al spine. Multilevel severe bilateral cervical facet osteoarthritis, left more prominent than right. Moderate neural foraminal stenosis on the left at C4-C5 and bilaterally at C5-C6. Mild neural from st enosis at many of the remaining cervical levels. Cervical soft tissues are unremarkable. Visualized a pices of lungs are clear. Visualized portion of the cervical soft tissues are unremarkable. IMPRESSION: 1. Mild to moderate cervical spondylosis. No acute osseous abnormality. Reviewed, dictated and finalized at location A.
--- NOTE | ~2025-06-15 | XR_ITS ---
EXAMINATION: XR shoulder RT min 2V DATE: 06/15/2025 16:25 INDICATION: Right shoulder injury TECHNIQUE: AP internally and externally rotated and transscapular Y views of the right shoulder were obtained. COMPARISON: None FINDINGS: Normal alignment. No fracture.Mild right glenohumeral osteoarthritis. Moderate right acromioclavicul ar osteoarthritis. Visualized portion of the right lung are clear with no pleural effusion or pneumot horax. Soft tissues are unremarkable. IMPRESSION: The right glenohumeral and moderate acromioclavicular osteoarthritis. No acute osseous abnormality. Reviewed, dictated and finalized at location A.
--- OUTSIDE RECORDS SUMMARY | 2025-06-15 15:47 | XMS_ITS | Clinical Summary ---
Author Organization [facility] Address [address] [place] [id number] Care Team Providers Care Solar Consultant Name Role Phone Unavailable Primary Care Provider Unavailabl e Social History Tobacco Use Types Packs/Day Years Used Date Smoking Tobacco: Never Assessed Comments Unknown Sex and Gender Information Value Date Recorded Sex Assigned at Not on file Legal Sex Female 7:19 PM CDT Gender Identity Not on file Sexual Orientation Not on file Plan of Treatment Health Maintenance Due Date Last Done Comments Colorectal Cancer Screening Colonoscopy (10 Years) 1953 Hepatitis C 1971 DTaP, Tdap and Td Vaccines ( 1 - Tdap) 02/11/1972 Mammogram Screening 1993 Pneumococcal Vaccine: 50+ Ye ars (1 of 1 - PCV) 2003 Zoster Vaccines (1 of 2) 2003 Dexa Scan (General) 2018 COVID-19 Vaccine ( - 2023-2 5 season) 2024 RSV Immunization or 60+ Years (1 - 1-dose 75+ series) 02/11/2028 Meningococcal B Vaccine Aged Out No l onger eligible based on patient's age to complete this topic Meningococcal Vaccine Aged Out No tee antonella eligible based on patient's age to complete this topic RSV Immunizations Under 20 Months Aged Out No longer eligible based on patient's age to complete this topic
--- OUTSIDE RECORDS SUMMARY | 2025-06-15 15:47 | XMS_ITS | Clinical Summary ---
Author Organization [facility] [employer] Address [address] [address] Care Team Providers Care Customer Success Advocate Name Role Phone Nasir Eduardo Anoop RODRIGUEZ Primary Care Provider [phone] Source Comments [facility] [employer],non-owned Affiliates and Associated Physician Practices is amultiple site organization consisting of ambulatory clinics and hospital sitesin [place], [place], [place] and [place]. This disclosure is being madepursuant to the Care Everywhere program and may not contain all information available regarding this patient. Last updated 18.[facility] [employer] Allergies Active Allergy Reactions Criticality Noted Date Comments Topiramate Other 09/25/2015 Hair loss Medications * Be aware that medications may not be up to date on this document. Alwaysverify current medications with the patient. acetaminophen (TYLENOL) 500 MG tablet Take 500 mg by mouth every 6 hours PRN Active albuterol HFA (PROAIR HFA) 108 (90 BASE) MCG/ACT inhaler Inhale 2 Puffs by mouth every 6 hours PRN Active ascorbic acid (VITAMIN C) 250 MG tablet Take 250 mg by mouth once daily Active PARoxetine (PAXIL) 10 MG tablet Take 10 mg by mouth once daily Active risedronate Sodium (ACTONEL) 150 MG tablet Take 150 mg by mouth every 30 days Active Ergocalciferol (VITAMIN D2 PO)Indications: take 50,000 units every 7 days Take 1.25 mg by mouth Two times a week Reasons: take 50,000 units every 7 days Active fluticasone-skyler anterol (BREO ELLIPTA) 100-25 MCG/INH inhaler Inhale 1 puff by mouth once daily Administer at the same time each day. Rinse mouth after using Active verapamil CR (ISOPTIN-SR) 120 MG tablet TAKE 1 TABLET BY MOUTH EVERY DAY 90 tablet 4 0 Active hydroCHLOROthia zide (MICROZIDE) 12.5 MG capsule TAKE 1 CAPSULE BY MOUTH EVERY DAY 90 capsule 4 0 Active losartan (COZAAR) 100 MG tablet Please specify directions, refills and quantity 90 tablet 0 Active dabigatran (PRADAXA) 150 MG capsule Take 1 (one) capsule by mouth 2 times daily 180 capsule 4 1 Active atorvastatin (LIPITOR) 40 MG tablet TAKE 1 TABLET BY MOUTH EVERYDAY AT BEDTIME 90 tablet 4 1 Active digoxin (LANOXIN) 0.125 MG tablet Take 1 (one) tablet by mouth once daily 90 tablet 4 1 Active metoprolol tartrate (LOPRESSOR) 100 MG tablet Take 2 (two) tablets by mouth 2 times daily 360 tablet 4 1 Active Active Problems Patient Care Coordination No te Formatting of this note migh t be different from the original. Sheriffs Officer- Dr. Riley Bush Problem Noted Date Diagnosed Date Type 2 diabetes mellitus 03/24/2018 Overview (10/07/2019): 04/03 A1c 7.2 Non-rheumatic tricuspid valve insufficiency 06/2017 Non-rheumatic aortic valve insufficiency 016 Mixed hyperlipidemia 09/25/2015 Overview (12/11/2020): 11/04 Cholesterol 148 HDL 51 LDL 68 triglyceride 176, AST 26 ALT 32 10/04 Cholesterol 159 HDL 50 LDL 71 triglyceride 192, AST 26 ALT 33 glucose 156 10/03 Cholesterol 242 HDL 49 LDL 149 triglyceride 221, AST 30 ALT 36 glucose 99 03/03 Cholesterol 230 HDL 48 LDL 134 triglyceride 240, AST 27 ALT 38 glucose 160 04/01 Cholesterol 269 HDL 45 LDL 150 triglyceride 370, AST 34 ALT 42 glucose 112 08/01 Cholesterol 251 HDL 46 LDL 149 triglyceride 280, AST 37 ALT 39 glucose 93 06/30 Cholesterol 272 HDL 51 LDL 165 triglyceride 281, normal CMP x ALT 45 glucose 105 10/29 Cholesterol 219 HDL 37 LDL 154 triglyceride 222, AST 46 ALT 58 Essential hypertension 09/25/2015 Atrial fibrillation, permanent 04/16/2015 Overview (09/25/2015): AF onset -> anticoagulation 04/24 Holter: AF at 92, range 43-150, longest pause 2.1, no PVCs 06/24 AF cardioversion 04/28 EKG: AF at 94, nonspecific ST/TW abnormality 12/30 Holter: AF at 80, range 44-124, 2 PVCs, longest pause 1.9, SOB correlates AF at 100-110s Non-rheumatic mitral regurgitation 12/13/2014 Overview (12/11/2020): 04/24 echo: EF 60%, mild MR/TR 04/29 echo: EF 66% , concentric LVH, severe HAI 11/30 echo: EF 65%, mild LVH, diastolic dysfunction w/ increased LAP, severe HAI, AV sclerosis, moderate MR, mild TR, PA 50 03/01 echo: EF 55%, severe HAI, moderate MR, mild AI, mild-moderate TR, RVSP 39 04/01 echo: EF 65%, mild LVH/HAI, moderate-severe MR, moderate TR, trace AI, RVSP 52 04/02 echo: EF 65-70%, normal LV size, severe HAI, moderate MR/TR, mild AI, RVSP 35 04/03 echo: EF 60-65%, mild LVH, severe HAI, moderate MR, mild-moderate TR, trace AI, RVSP 35 12/06 echo: EF 60-65%, severe HAI, moderate MR, mild AI/TR, RVSP 35 Resolved Problems Problem Noted Date Diagnosed Date Resolved Date JOHNSON (dyspnea on exertion) 09/25/2015 Family History Relation Name Status Comments Brother 1 Alive a-fib Brother 2 (Age 60) a-fib Father (Age 82) no heart d z Maternal Aunt (Age 47) of M I Mother (Age 64) of [place] Sister Alive no heart dz Social History Tobacco Use Types Packs/Day Years Used Date Smoking Tobacco: Never Smokeless Tobacco: Never Alcohol Use Standard Drinks/Week Comments Not Asked 0 (1 standard drink = 0.6 oz pur e alcohol) Comments Unknown Sex and Gender Information Value Date Recorded Sex Assigned at Not on file Legal Sex Female 2:34 PM CDT Gender Identity Not on file Sexual Orientation Not on file Occupation Industry Job Start Date Job End Date retired Not on file Not on file Not on file Last Filed Vital Signs Vital Sign Reading Time Taken Comments Blood Pressure 124/80 12/11/2020 11:40 AM HOUSESMITH Pulse 78 12/11/2020 11:40 AM HOUSESMITH Temperature 37.6 C (99.7 F) 05/01/2018 11:47 AM CDT Respiratory Rate 12 10/07/2019 8:04 AM HOUSESMITH Oxygen Saturation 99% 12/11/2020 11:40 AM HOUSESMITH Inhaled Oxygen Concentration - - Weight 78.9 kg (174 lb) 12/11/2020 11:40 AM HOUSESMITH Height 160 cm (5' 3) 12/11/2020 11:40 AM HOUSESMITH Body Mass Index 30.82 12/11/2020 11:40 AM HOUSESMITH Plan of Treatment Health Maintenance Due Date Last Done Comments BONE DENSITY TESTING 1955 COLOGUARD (AGES 45-75) - COLON CA SCREENING 1953 COLON MONITORING 1953 COLONOSCOPY - COLON CA SCREENING 1953 CT COLONOGRAPHY - COLON CA SCREENING 1953 Colorectal Cancer Screening 1955 FIT - COLON CA SCREENING 1953 FLEX SIG - COLON CA SCREENING 1953 MAMMOGRAM 1955 MEDICARE AWV 12 MONTHS 1953 HEPATITIS C SCREENING 02/06/1971 DTAP/TDAP/TD VACCINES (1 - Tdap) 02/11/1972 PNEUMOCOCCAL VACCINE 50+ (1 of 2 - PCV) 02/11/1972 ZOSTER VACCINE (1 of 2) 2003 DIABETES RETINOPATHY SCREENING 10/07/2019 DIABETES-FOOT EXAM WITH MONOFILAMENT 10/07/2019 DIABETES-HGB A1C 10/07/2019 DIABETES-SERUM CREATININE 10/03/20202018, 09/22/2018, 03/04/2018, Additional history exists COVID-19 VACCINE ( - season) 2024 DEPRESSION SCREENING 11/16/2024 DIABETES - URINE PROTEIN SCREENING 11/16/2024 INFLUENZA VACCINE (#1) 2025 Respiratory Syncytial Virus (RSV) Vaccine Pt: or over 60 yrs (1 - 1-dose 75+ series) 02/11/2028 HEPATITIS B VACCINE Aged Out No longe r eligible based on patient's age to complete this topic HIB VACCINE Aged Out No longer eligi ble based on patient's age to complete this topic HPV VACCINE Aged Out No longer eligi ble based on patient's age to complete this topic MENINGOCOCCAL (Group B) VACCINE SHARED DECISION-MAKING Aged Out No longer eligible based on patient's age to complete this topic MENINGOCOCCAL GROUPS A/C/Y/W VACCINE Aged Out No longer eligible based on patient's age to complete this topic Procedures Procedure Name Priority Date/Time Associated Diagnosis Comments COMPREHENSIVE METABOLIC PANEL Routine 10/03/2019 9:51 AM HOUSESMITH Essential hypertension Mixed hyperlipidemia from Last 3 Months or Most Recently Relevant to Health Maintenance Results * (ABNORMAL) COMPREHENSIVE METABOLIC PANEL (10/03/2019 9:51 AM HOUSESMITH) Glucose 156(H) 65 - 99 mg/dL [facility] INSURANCE BILL BUN 13 8 - 27 mg/dL [facility] INSURANCE BILL Creatinine 0.68 0.57 - 1.00 mg/dL [facility] INSURANCE BILL eGFR by MDRD 91 >59 mL/min/1.7 3 [facility] INSURANCE BILL eGFR by MDRD 105 >59 mL/min/1.7 3 [facility] INSURANCE BILL BUN/Creatinine Ratio 19 12 - 28 [facility] INSURANCE BILL Sodium 144 134 - 144 mmol/L [facility] INSURANCE BILL Potassium 4.5 3.5 - 5.2 mmol/L [facility] INSURANCE BILL Chloride 105 96 - 106 mmol/L [facility] INSURANCE BILL CO2 25 20 - 29 mmol/L [facility] INSURANCE BILL Calcium 10.5(H) 8.7 - 10.3 mg/dL [facility] INSURANCE BILL Protein Total 6.7 6.0 - 8.5 g/dL [facility] INSURANCE BILL Albumin 4.7 3.6 - 4.8 g/dL [facility] INSURANCE BILL Globulin Total 2.0 1.5 - 4.5 g/dL [facility] INSURANCE BILL Albumin/Globulin Ratio 2.4(H) 1.2 - 2.2 [facility] INSURANCE BILL Bilirubin Total 0.9 0.0 - 1.2 mg/dL [facility] INSURANCE BILL Alkaline Phosphatase 100 39 - 117 IU/L [facility] INSURANCE BILL AST 26 0 - 40 IU/L [facility] INSURANCE BILL ALT 33(H) 0 - 32 IU/L [facility] INSURANCE BILL Comment:FASTING Blood BLOOD SPECIMEN / Unknown 10/03/2019 9:51 AM HOUSESMITH 10/03/2019 Narrative Resulting Agency Comment Lab Testing performed at: [facility] [address] [id number] Riley Bush MD LAB - CHEMISTRY ORDERABLES F inal Result [facility] INSURANCE BILL [address] [place] [address] from Last 3 Months or Most Recently Relevant to Health Maintenance Insurance MEDICARE COMMERCIAL GENERIC MEDICARE [facility] * Guarantor: AUREA GALVAN Account Type Relation to Patient Date of Phone Billing Address Personal/Family [address] [place] [address] MEDICARE MEDICARE SUPPLEMENT [place]YOR GENERIC * Guarantor: AUREA GALVAN Account Type Relation to Patient Date of Phone Billing Address Personal/Family [address] [id number] MEDICARE MEDICARE SUPPLEMENT [place] GENERIC * Guarantor: AUREA GALVAN Account Type Relation to Patient Date of Phone Billing Address Personal/Family [address] [place] [address] MEDICARE MEDICARE SUPPLEMENT [place]YOR GENERIC Care Teams Customer Success Advocate Relationship Specialty Start Date End Date Nasir Eduardo DO [address] [facility] [address] [place] [address] PCP - General Internal Medicine 09/25/15
--- OUTSIDE RECORDS SUMMARY | 2025-06-15 15:47 | XMS_ITS | Clinical Summary ---
Author Organization [facility] Address [address] [place] [address] Phone Care Team Providers Care Oriental Rug Stretcher Name Role Phone Nasir Eduardo DO Primary Care Provider [phone] Allergies Active Allergy Reactions Criticality Noted Date Comments Topiramate Other (See Comments) 12/13/2014 Hair loss Medications fluticasone (FLOVENT HFA) 110 mcg/actuation Aerosol Take by inhalation 2 times daily. Active albuterol sulfate (VENTOLIN HFA) 90 mcg/Actuation inhaler Take 2 Puffs by inhalation every 6 hours as needed for Shortness of Breath. Active magnesium oxide 250 mg Tablet Take by mouth daily. Active vit B cmplx 3-FA-Vit C-Biotin (RENAVITE-RX RX) 1-60-300 mg-mg-mcg Tablet Take 1 Tab by mouth daily. Active ascorbic acid (VITAMIN C) 250 mg tablet Take 250 mg by mouth daily. Active acetaminophen (TYLENOL) 500 mg tablet Take 500 mg by mouth every 6 hours as needed. Active digoxin (LANOXIN) 125 mcg tablet Take 1 Tab by mouth daily. 90 Tab 3 5 Active metoprolol tartrate (LOPRESSOR) 100 mg tablet 200 mg morning, 150 mg evening 1 Tab 0 5 Active verapamil (CALAN SR) 120 mg Sustained Release tablet Take 1 Tab (120 mg) by mouth daily. 90 Tab 3 5 Active hydrochlorothia zide (MICROZIDE) 12.5 mg capsule Take 1 Cap (12.5 mg) by mouth daily. 30 Cap 11 5 Active PARoxetine mesylate 7.5 mg Capsule Take by mouth daily. Active valsartan (DIOVAN) 160 mg tablet Take 1 Tab (160 mg) by mouth 2 times daily. 180 Tab 3 5 Active dabigatran etexilate (PRADAXA) 75 mg Capsule Take 75 mg by mouth 2 times daily. Active metFORMIN (GLUCOPHAGE) 500 mg tablet Take 500 mg by mouth 2 times daily with meals. Active Active Problems Patient Care Coordination No te Formatting of this note migh t be different from the original. Sustainability Coach - Dr. 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 01/15/2021 Spondylolisthesis at L4-L5 level 01/15/2021 Mitral regurgitation 12/13/2014 Overview (12/31/2014): 04/24 echo: EF 60%, mild MR/TR 04/29 echo: EF 66% , concentric LVH, severe HAI 11/30 echo: EF 65%, mild LVH, diastolic dysfunction w/ increased LAP, severe HAI, AV sclerosis, moderate MR, mild TR, PA 50 Hyperlipidemia Overview (12/12/2014): 10/29 cholesterol 219 HDL 37 LDL 154 triglyceride 222, AST 46 ALT 58 Hypertension Atrial fibrillation Overview (01/08/2015): 1999s AF onset -> anticoagulation 04/24 Holter: AF at 92, range 43-150, longest pause 2.1, no PVCs 06/24 AF cardioversion 04/28 EKG: AF at 94, nonspecific ST/TW abnormality 12/30 Holter: AF at 80, range 44-124, 2 PVCs, longest pause 1.9, SOB correlates AF at 100-110s Family History Medical History Relation Name Comments Arrhythmia Brother 3 Afib Arrhythmia Father Afib Heart Attack Mother Relation Name Status Comments Brother 1 (Age 60) AF Brother 2 Alive AF Brother 3 Father (Age 82) no heart d isease Maternal Aunt (Age 47) [place] a t 47 Mother (Age 64) [place] at 64 Sister Alive no heart diseas e Social History Tobacco Use Types Packs/Day Years Used Date Smoking Tobacco: Never Smokeless Tobacco: Never Tobacco Cessation:Counseling Given: No Alcohol Use Standard Drinks/Week Comments No 0 (1 standard drink = 0.6 oz pur e alcohol) Comments Unknown Sex and Gender Information Value Date Recorded Sex Assigned at Not on file Legal Sex Female 11:48 AM ANESTHESIOLOGY FACULTY Gender Identity Not on file Sexual Orientation Not on file 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 Not on file Not on file Last Filed Vital Signs Vital Sign Reading Time Taken Comments Blood Pressure 110/78 03/21/2015 9:25 AM CDT Pulse 68 03/21/2015 9:25 AM CDT Temperature - - Respiratory Rate 20 03/21/2015 9:25 AM CDT Oxygen Saturation 98% 03/21/2015 9:25 AM CDT Inhaled Oxygen Concentration - - Weight 78.5 kg (173 lb) 01/15/2021 10:59 AM ANESTHESIOLOGY FACULTY Height 160 cm (5' 3) 01/15/2021 10:59 AM ANESTHESIOLOGY FACULTY Body Mass Index 30.65 01/15/2021 10:59 AM ANESTHESIOLOGY FACULTY Plan of Treatment Health Maintenance Due Date Last Done Comments DIABETES ANNUAL FOOT EXAM 1971 DIABETES ANNUAL RETINAL EXAM 1971 DIABETES HBA1C Q 6 MONTHS 1971 DIABETES MICROALBUMIN ANNUAL SCREEN 1971 LDL CHOLESTEROL ANNUAL 1971 DTAP/TDAP/TD VACCINES (1 - Tdap) 02/11/1972 PNEUMOCOCCAL VACCINE 50+ YEARS (1 of 2 - PCV) 02/10/19 72 BREAST CANCER SCREENING 1993 COLORECTAL SCREENING 1998 Colorectal Cancer Screening 1998 FIT-DNA Q 3 years 1998 FIT/FOBT Q 1 year 1998 Flex Sig/CT Colonography Q 5 years 1998 ZOSTER VACCINE (1 of 2) 2003 OSTEOPOROSIS SCREENING 2018 INFLUENZA VACCINE (#1) 2025 RSV VACCINE (60+ or ) (1 - 1-dose 75+ series) 02/11/2028 Insurance [facility]IC[facility] Care Teams Oriental Rug Stretcher Relationship Specialty Start Date End Date Nasir Eduardo DO [address] [facility] [address] [place] [address] PCP - General Internal Medicine 12/05/14
[2025-06-15 15:49] VITALS: BP 173/93; PULSE 75; RESP 16; TEMP 36.5; O2SAT 97
--- NOTE | 2025-06-15 16:02 | ED_ITS ---
HPI - Fall General Chief Complaint: Fall <Ramandeep Johnson APRN - Last Filed: 06/16/25 09:37> Stated Complaint: FALL, HEAD, R WRIST,L THUMB INJURY <Ramandeep Johnson APRN - Last Filed: 06/16/25 09:37> Time Seen by Provider: 06/15/25 15:45 <Ramandeep Johnson APRN - Last Filed: 06/16/25 09:37> Focused HPI: Patient is a 70-year-old female who presents to the ER after sustaining a fall at home. She reports she was walking towards her washer and fell for an unknown reason. Patient is unsure whether not she lost consciousness and is unsure what she hit when she fell. She endorses pain to her right wrist, right frontal forehead, and left thumb. Patient reports she does take a blood thinner due to her history of AFib. She also endorses a history of a spinal cord tumor approximately 20 years ago. GENERAL: Ill-appearing, well-nourished, and in no acute distress. HEAD: Normocephalic, right forehead hematoma CHEST: Clear to auscultation. ?No respiratory distress. HEART: Regular rate and rhythm.? NEURO: ?Alert and oriented x3. Patient screened in triage and initial orders placed.? ?Additional care and disposition to be based upon?diagnostic testing and treatment. <Ramandeep Johnson APRN - Last Filed: 06/16/25 09:37> History of Present Illness HPI Narrative: per HPI <Eulalia Henson MD - Last Filed: 06/16/25 20:56> Related Data Home Medications: Home Medications ?Medication ?Instructions ?Recorded ?Confirmed ?Last Taken ?Type atorvastatin 40 mg tablet 40 mg PO HS 01/28/20 03/17/25 Unknown History digoxin 125 mcg (0.125 mg) tablet 125 mcg PO DAILY 01/28/20 03/17/25 Unknown History metoprolol tartrate 100 mg tablet 200 mg PO BID 01/28/20 03/17/25 05/23/24 History 06 dabigatran etexilate 150 mg capsule 150 mg PO BID 05/11/24 03/17/25 05/20/24 History fluticasone furoate 100 1 inh inhalation Q24H PRN 05/11/24 03/17/25 Unknown History mcg-vilanterol 25 mcg/dose Shortness Of Breath inhalation powder (Breo Ellipta) losartan 100 mg tablet 100 mg PO DAILY 05/11/24 03/17/25 Unknown History paroxetine HCl 10 mg tablet 10 mg PO DAILY 05/11/24 03/17/25 Unknown History verapamil 120 mg 24 hr 80 mg PO QPM 05/11/24 03/17/25 Unknown History capsule,extended release <Ramandeep Johnson APRN - Last Filed: 06/16/25 09:37> Allergies/Adverse Reactions: Allergies Allergy/AdvReac Type Severity Reaction Status Date / Time topiramate (From DSI MET-TECH) AdvReac Intermediate HAIR LOSS Verified 06/15/25 16:32 <Ramandeep Johnson APRN - Last Filed: 06/16/25 09:37> Review of Systems 2 Review of Systems: All systems reviewed & are unremarkable except as noted in HPI and below <Eulalia Henson MD - Last Filed: 06/16/25 20:56> PENDING SALE TO [facility] Past Medical History Medical History: Medical History Colon cancer screening Trigger finger, right middle finger Paroxysmal atrial fibrillation TONEY (obstructive sleep apnea) Hx of usp use of blood thinners Essential (primary) hypertension Body mass index (BMI) 23 or greater (08/23/19) Antiplatelet or antithrombotic long-term use Mass of skin of left shoulder Osteopenia Type 2 diabetes mellitus with hyperglycemia, without long-term current use of insulin Spinal stenosis of lumbar region Sleep apnea Hypercalcemia Type 2 diabetes mellitus Seasonal allergies Hypertension Afib Asthma Headache Vision loss Chronic atrial fibrillation Hyperglycemia Pure hypercholesterolemia, unspecified Spinal cord ependymoma <Ramandeep Johnson APRN - Last Filed: 06/16/25 09:37> Surgical History Surgical History: Surgical History H/O excision of mass excision of 10 cm left posterior shoulder mass, layered closure 10/29/22 History of surgical procedure on eye proper using laser <Ramandeep Johnson APRN - Last Filed: 06/16/25 09:37> Family History Family History: Family History Father Family history of chronic obstructive pulmonary disease, Onset Age: 87 Sibling Family history of atrial fibrillation Mother Acute myocardial infarction, Onset Age: 64 Other Family history of tuberculosis <Ramandeep Johnson APRN - Last Filed: 06/16/25 09:37> Social History Social History: Social History Smoking status: Never smoker Second hand tobacco smoke exposure: No Alcohol intake: current Substance use: never Substance use type: does not use Do You Feel Safe in your Home?: Yes Lack of Transportation: No Lack of Food: Never True Current Housing: I Have Housing Concerned About Future Housing: No Difficulty Paying Gas/Electric Bills: No Difficulty Paying for Meds: No Currently Unemployed: No Education: High School Diploma/GED Difficulty w/ Childcare or Family Care: No Living arrangements: with family Occupation/Education: occupation Additional occupation/education comments: [employer] Gender identity (if verbalized by the patient): Female Sexual Orientation (if Verbalized by the Patient): Straight or Heterosexual Spiritual care concerns: No <Ramandeep Johnson, IRONWORKER APPRENTICE - Last Filed: 06/16/25 09:37> Exam 2 Narrative: EXAMINATION OF ORGAN SYSTEMS/BODY AREAS: Constitutional: Vital signs per nursing GENERAL: Appears uncomfortable HEAD: R forehead contusion EYES: EOMI ENT: Hearing grossly intact LUNGS: Nonlabored breathing. HEART: [Regular rate and rhythm], normal radial pulse with good capillary refill bilateral fingers ABD: [Soft], [nontender to palpation] EXT: Obvious deformity right wrist SKIN: Bruising to face, wrist, hands NEURO: [Alert, clear speech.] PSYCH: Normal affect <Eulalia Henson MD - Last Filed: 06/16/25 20:56> Course Vital Signs Vital signs: Vital Signs Temperature 97.7 F 06/15/25 15:49 Pulse Rate 75 06/15/25 15:49 Respiratory Rate 16 06/15/25 15:49 Blood Pressure 173/93 H 06/15/25 15:49 Pulse Oximetry 97 06/15/25 15:49 Oxygen Delivery Room Air 06/15/25 15:49 Temperature 97.7 F 06/15/25 15:49 Pulse Rate 75 06/15/25 15:49 Respiratory Rate 16 06/15/25 15:49 Blood Pressure 173/93 H 06/15/25 15:49 Pulse Oximetry 97 06/15/25 15:49 Oxygen Delivery Room Air 06/15/25 15:49 <Ramandeep Johnson APRN - Last Filed: 06/16/25 09:37> Vital Signs Temperature 97.7 F 06/15/25 15:49 Pulse Rate 75 06/15/25 15:49 Respiratory Rate 16 06/15/25 15:49 Blood Pressure 173/93 H 06/15/25 15:49 Pulse Oximetry 97 06/15/25 15:49 Oxygen Delivery Room Air 06/15/25 15:49 Temperature 97.7 F 06/15/25 15:49 Pulse Rate 75 06/15/25 15:49 Respiratory Rate 16 06/15/25 15:49 Blood Pressure 173/93 H 06/15/25 15:49 Pulse Oximetry 97 06/15/25 15:49 Oxygen Delivery Room Air 06/15/25 15:49 <Eulalia Henson MD - Last Filed: 06/16/25 20:56> Procedures Orthopedic Splinting/Casting Injury #1: Splinting/Casting Date: 06/16/25 <Eulalia Henson MD - Last Filed: 06/16/25 20:56> Splinting/Casting Time: 20:52 <Eulalia Henson MD - Last Filed: 06/16/25 20:56> Side: right <Eulalia Henson MD - Last Filed: 06/16/25 20:56> Upper Extremity Injury Location: wrist <Eulalia Henson MD - Last Filed: 06/16/25 20:56> Upper Extremity Immobilizer: sugar tong splint and wrist splint <Eulalia Henson MD - Last Filed: 06/16/25 20:56> Splint: customized in ED <Eulalia Henson MD - Last Filed: 06/16/25 20:56> OCL: sugar tong <Eulalia Henson MD - Last Filed: 06/16/25 20:56> Pre-Procedure Neuro Vascular Exam: normal <Eulalia Henson MD - Last Filed: 06/16/25 20:56> Post-Procedure Neuro Vascular Exam: normal <Eulalia Henson MD - Last Filed: 06/16/25 20:56> MDM - Fall MDM Narrative Medical decision making narrative: Patient presents here with injury after she lost her balance and fell, she usually uses a walker at home and often has unsteady gait. Has extensive bruising everywhere, most of the pain is to her right wrist. She is on blood thinners, there were extensive imaging obtained, including CT head, C-spine, as well as left hand where she has bruising to her from, and right wrist and shoulder. Syncope workup also initiated with EKG, labs. EKG - 12-Lead: Performed at 1637. Interpreted by me. Atrial fibrillation. Rate 91. [Normal] axis. [place]-interval [normal]. QRS duration [normal]. QTc [normal]. [No ST segment elevation or depression]. Some T-wave inversions in inferior lateral leads. Wrist x-ray unfortunately does show distal radius and ulnar fracture. Hematoma block by myself, with 1% lidocaine to the wrist; patient tolerated this well with some slight improvement in pain. Wrist splint applied after some traction from finger traps. D/w ortho Dr Richard who will see patient in clinic. Discussed plan with family and patient, they are agreeable to this, sign at bedside will be staying with her to help her get around at home. I did let them know that if there are any issues, they can return to the emergency room. They are agreeable to this. <Eulalia Henson MD - Last Filed: 06/16/25 20:56> Lab Data Result diagrams: 06/15/25 16:41 06/15/25 16:41 <Ramandeep Johnson APRN - Last Filed: 06/16/25 09:37> Labs: Lab Results 06/15/25 Range/Units 16:41 WBC 9.1 (4.5-10.0) K/mm3 RBC 4.36 (4.2-5.4) M/mm3 Hgb 13.9 (12.0-15.0) g/dL Hct 42.7 (37.0-47.0) % MCV 97.9 (80-100) fl MCH 31.9 (26-34) pg MCHC 32.6 (32-36) g/dl RDW 11.9 (11.5-14.5) % Plt Count 185 (150-375) k/mm3 MPV 10.8 H (7.4-10.4) fl Immature Gran % (Auto) 0.4 (0-0.5) % Neut % (Auto) 74.2 H (45.5-73.1) % Lymph % (Auto) 16.0 L (18.3-44.2) % [place] % (Auto) 7.6 (2.6-8.5) % Eos % (Auto) 1.4 (0-4.4) % Baso % (Auto) 0.4 (0.2-1.2) % Lymph # (Auto) 1.45 (0.9-3.2) K/mm3 [place] # (Auto) 0.7 H (0.1-0.6) K/mm3 Eos # (Auto) 0.1 (0-0.3) K/mm3 Baso # (Auto) 0.0 (0.0-0.1) K/mm3 Abs Immat Gran (auto) 0.04 H (0.00-0.031) K/mm3 Absolute Neuts (auto) 6.7 (1.3-6.7) K/mm3 Absolute Nucleated RBC 0.000 (0.0-0.012) K/mm3 Nucleated RBC % 0.0 (0.0-0.2) % PT 14.5 (11.1-14.7) Seconds INR 1.1 APTT 29.0 (22.3-36.8) Seconds Sodium 136 L (137-145) mmol/L Potassium 4.8 (3.4-5.0) mmol/L Chloride 105 (98-107) mmol/L Carbon Dioxide 23 (22-30) mmol/L Anion Gap 8 (4-12) mmol/L BUN 14 (7-17) mg/dL Creatinine 0.68 L (0.7-1.0) mg/dL Estim Creat Clear Calc Not Reportable Estimated GFR > 60 (59 - ) Glucose 159 H (65-110) mg/dL Calcium 11.2 H (8.4-10.2) mg/dL Total Bilirubin 1.0 (0.2-1.3) mg/dL AST 30 (14-36) U/L ALT 27 (6-35) U/L Alkaline Phosphatase 111 (38-126) U/L Total Protein 7.9 (6.3-8.2) g/dL Albumin 4.7 (3.5-5.1) g/dL <Ramandeep Johnson, IRONWORKER APPRENTICE - Last Filed: 06/16/25 09:37> Lab Results 06/15/25 Range/Units 16:41 WBC 9.1 (4.5-10.0) K/mm3 RBC 4.36 (4.2-5.4) M/mm3 Hgb 13.9 (12.0-15.0) g/dL Hct 42.7 (37.0-47.0) % MCV 97.9 (80-100) fl MCH 31.9 (26-34) pg MCHC 32.6 (32-36) g/dl RDW 11.9 (11.5-14.5) % Plt Count 185 (150-375) k/mm3 MPV 10.8 H (7.4-10.4) fl Immature Gran % (Auto) 0.4 (0-0.5) % Neut % (Auto) 74.2 H (45.5-73.1) % Lymph % (Auto) 16.0 L (18.3-44.2) % [place] % (Auto) 7.6 (2.6-8.5) % Eos % (Auto) 1.4 (0-4.4) % Baso % (Auto) 0.4 (0.2-1.2) % Lymph # (Auto) 1.45 (0.9-3.2) K/mm3 [place] # (Auto) 0.7 H (0.1-0.6) K/mm3 Eos # (Auto) 0.1 (0-0.3) K/mm3 Baso # (Auto) 0.0 (0.0-0.1) K/mm3 Abs Immat Gran (auto) 0.04 H (0.00-0.031) K/mm3 Absolute Neuts (auto) 6.7 (1.3-6.7) K/mm3 Absolute Nucleated RBC 0.000 (0.0-0.012) K/mm3 Nucleated RBC % 0.0 (0.0-0.2) % PT 14.5 (11.1-14.7) Seconds INR 1.1 APTT 29.0 (22.3-36.8) Seconds Sodium 136 L (137-145) mmol/L Potassium 4.8 (3.4-5.0) mmol/L Chloride 105 (98-107) mmol/L Carbon Dioxide 23 (22-30) mmol/L Anion Gap 8 (4-12) mmol/L BUN 14 (7-17) mg/dL Creatinine 0.68 L (0.7-1.0) mg/dL Estim Creat Clear Calc Not Reportable Estimated GFR > 60 (59 - ) Glucose 159 H (65-110) mg/dL Calcium 11.2 H (8.4-10.2) mg/dL Total Bilirubin 1.0 (0.2-1.3) mg/dL AST 30 (14-36) U/L ALT 27 (6-35) U/L Alkaline Phosphatase 111 (38-126) U/L Total Protein 7.9 (6.3-8.2) g/dL Albumin 4.7 (3.5-5.1) g/dL <Eulalia Henson MD - Last Filed: 06/16/25 20:56> Discharge Plan Discharge Clinical Impression: Fracture of wrist, Hematoma, Fall <Ramandeep Johnson APRN - Last Filed: 06/16/25 09:37> Patient Disposition: Home <Ramandeep Johnson APRN - Last Filed: 06/16/25 09:37> Condition: Stable <Ramandeep Johnson APRN - Last Filed: 06/16/25 09:37> Instructions: Wrist Fracture in Adults (ED), Head Injury (ED) <Ramandeep Johnson APRN - Last Filed: 06/16/25 09:37> Additional Instructions: Please follow up with the orthopedic surgeon and your PCP; you can always return for any further issues. <Ramandeep Johnson APRN - Last Filed: 06/16/25 09:37> Patient Language: Lithuanian <Ramandeep Johnson APRN - Last Filed: 06/16/25 09:37> Prescriptions: New oxycodone 5 mg tablet 5 mg PO Q6H PRN (Reason: pain) Qty: 14 0RF acetaminophen [Tylenol Extra Strength] 500 mg tablet 1,000 mg PO Q6H PRN (Reason: pain) Qty: 50 0RF No Action atorvastatin 40 mg Tablet 40 mg PO HS metoprolol tartrate 100 mg Tablet 200 mg PO BID digoxin 125 mcg (0.125 mg) Tablet 125 mcg PO DAILY azelastine 137 mcg (0.1 %) spray,non-aerosol 1 spray intranasal Q12H Qty: 30 3RF Rx Instructions: administer into each nostril (DME) FreeStyle Mateo 3 Plus Sensor Device See Rx Instructions .Route Qty: 6 3RF Rx Instructions: As directed Trijardy XR 12.5-2.5-1,000 mg tablet, IR - ER, biphasic 24hr 2 tablet PO QAM 90 Days Qty: 180 1RF (DME) FreeStyle Mateo 3 [place] Misc See Rx Instructions .Route Qty: 1 0RF Rx Instructions: As directed to monitor BS paroxetine HCl 10 mg tablet 10 mg PO DAILY losartan 100 mg tablet 100 mg PO DAILY verapamil 120 mg capsule,ext rel. pellets 24 hr 80 mg PO QPM dabigatran etexilate 150 mg capsule 150 mg PO BID fluticasone furoate-vilanterol [Breo Ellipta] 100-25 mcg/dose blister with device 1 inh inhalation Q24H PRN (Reason: Shortness Of Breath) Rx Instructions: Rinse and spit fluticasone propionate [Flonase Allergy Relief] 50 mcg/actuation spray,suspension 1 spray intranasal BID Qty: 16 3RF Rx Instructions: administer into each nostril <Ramandeep Johnson APRN - Last Filed: 06/16/25 09:37> Follow-up/Referrals: Gilmar Webb DO [Primary Care Provider] - Bear Rihcard MD [Physician] - 2 Days <Ramandeep Johnson APRN - Last Filed: 06/16/25 09:37>
--- NOTE | 2025-06-15 16:31 | ECG_ITS ---
Test Date: 2025-06-15 16:37:43 Measurements Intervals [place] Rate: 91 P: 0 [place]: 0 QRS: 42 QRSD: 76 T: -64 QT: 288 QTc: 355 Interpretive Statements ATRIAL FIBRILLATION CONSIDER ANTERIOR INFARCT, AGE INDETERMINATE ST-T WAVE ABNORMALITY IN ANTEROLAT/INF LEADS- CONSIDER ISCHEMIA BASELINE ARTIFACT- I, II, III, AVR, AVL, AVF ABNORMAL ECG No previous ECG available for comparison Electronically Signed On 06-16-2025 06:15:51 CDT by Kushal Morin D.O.
--- NOTE | 2025-06-15 16:31 | PC.NURSE ---
Patient began complaining of chest pain. EKG order placed
[2025-06-15 16:57] LABS: Hematocrit 42.7 % (37.0-47.0); Hemoglobin 13.9 g/dL (12.0-15.0); Immature Granulocyte Percent A 0.4 % (0-0.5); Lymphocytes Absolute Auto 1.45 K/mm3 (0.9-3.2); Mean Corpuscular HGB Conc 32.6 g/dl (32-36); Mean Corpuscular Hemoglobin 31.9 pg (26-34); Mean Corpuscular Volume 97.9 fl (80-100); Nucleated Red Blood Cells Absolute Auto 0.000 K/mm3 (0.0-0.012); Nucleated Red Blood Cells Perc 0.0 % (0.0-0.2); Platelet Count Result 185 k/mm3 (150-375); Red Blood Count 4.36 M/mm3 (4.2-5.4); White Blood Count 9.1 K/mm3 (4.5-10.0)
[2025-06-15 17:08] LABS: Alanine Aminotransferase 27 U/L (6-35); Albumin Level 4.7 g/dL (3.5-5.1); Alkaline Phosphatase 111 U/L (38-126); Anion Gap 8 mmol/L (4-12); Aspartate Amino Transferase 30 U/L (14-36); Bilirubin,Total 1.0 mg/dL (0.2-1.3); Blood Urea Nitrogen 14 mg/dL (7-17); Calcium 11.2 mg/dL (8.4-10.2); Carbon Dioxide 23 mmol/L (22-30); Chloride 105 mmol/L (98-107); Estimated Glomerular Filt Rate > 60; Glucose 159 mg/dL (65-110); Potassium 4.8 mmol/L (3.4-5.0); Sodium 136 mmol/L (137-145); Total Protein 7.9 g/dL (6.3-8.2)
[2025-06-15 17:09] LABS: INR 1.1; Prothrombin Time 14.5 Seconds (11.1-14.7)
[2025-06-15 17:10] LABS: Partial Thromboplastin Time 29.0 Seconds (22.3-36.8)
--- OUTSIDE RECORDS SUMMARY | 2025-06-15 17:40 | XMS_ITS | Clinical Summary ---
Author Organization [facility] Address [address] [place] [address] Care Team Providers Care Railroad Wheels And Axles Inspector Name Role Phone Nasir Eduardo Anoop RODRIGUEZ Primary Care Provider Source Comments [facility],non-owned Affiliates and Associated Physician Practices is amultiple site organization consisting of ambulatory clinics and hospital sitesin [place], [place], [place] and [place]. This disclosure is being madepursuant to the Care Everywhere program and may not contain all information available regarding this patient. Last updated 18.[facility] Allergies Active Allergy Reactions Criticality Noted Date [...] migh t be different from the original. Slip Tender- Dr. Riley Bush Problem Noted Date Diagnosed [...] Comments Blood Pressure 124/80 12/11/2020 11:40 AM LEAD SIMULATION MODELING ENGINEER Pulse 78 12/11/2020 11:40 AM LEAD SIMULATION MODELING ENGINEER Temperature 37.6 C (99.7 F) 05/01/2018 11:47 AM CDT Respiratory Rate 12 10/07/2019 8:04 AM LEAD SIMULATION MODELING ENGINEER Oxygen Saturation 99% 12/11/2020 11:40 AM LEAD SIMULATION MODELING ENGINEER Inhaled Oxygen Concentration - - Weight 78.9 kg (174 lb) 12/11/2020 11:40 AM LEAD SIMULATION MODELING ENGINEER Height 160 cm (5' 3) 12/11/2020 11:40 AM LEAD SIMULATION MODELING ENGINEER Body Mass Index 30.82 12/11/2020 11:40 AM LEAD SIMULATION MODELING ENGINEER Plan of Treatment Health Maintenance Due Date [...] COMPREHENSIVE METABOLIC PANEL Routine 10/03/2019 9:51 AM LEAD SIMULATION MODELING ENGINEER Essential hypertension Mixed hyperlipidemia from Last 3 Months or Most Recently Relevant to Health Maintenance Results * (ABNORMAL) COMPREHENSIVE METABOLIC PANEL (10/03/2019 9:51 AM LEAD SIMULATION MODELING ENGINEER) Glucose 156(H) 65 - 99 mg/dL [facility] [...] BLOOD SPECIMEN / Unknown 10/03/2019 9:51 AM LEAD SIMULATION MODELING ENGINEER 10/03/2019 Narrative Resulting Agency Comment Lab Testing performed at: [facility] [address] [facility] [id number] Riley Bush MD LAB - CHEMISTRY ORDERABLES F inal Result [facility] INSURANCE BILL [address] [place] [address] from Last 3 Months or Most Recently Relevant to Health Maintenance Insurance MEDICARE COMMERCIAL GENERIC MEDICARE [facility] * Guarantor: AURAE GALVAN Account Type Relation to Patient Date of Phone Billing Address Personal/Family [address] [place] [address] MEDICARE MEDICARE SUPPLEMENT PAYOR GENERIC * Guarantor: AUREA GALVAN Account Type Relation to Patient Date of Phone Billing Address Personal/Family [address] [id number] MEDICARE MEDICARE SUPPLEMENT PAYOR GENERIC * Guarantor: AUREA GALVAN Account Type Relation to Patient Date of Phone Billing Address Personal/Family [address] [place] [address] MEDICARE MEDICARE SUPPLEMENT PAYOR GENERIC Care Teams Railroad Wheels And Axles Inspector Relationship Specialty Start Date End Date Nasir Eduardo DO [address] [facility] [address] [place] [address] PCP - General Internal Medicine 09/25/15
--- OUTSIDE RECORDS SUMMARY | 2025-06-15 17:40 | XMS_ITS | Clinical Summary ---
Author Organization [facility] Address [address] [place] [address] Phone Care Team Providers Care Information Management Officer Name Role Phone Nasir Eduardo DO Primary Care Provider [phone] Allergies Active Allergy Reactions Criticality Noted Date [...] migh t be different from the original. Financial Services Consultant - Dr. Riley Bush Problem Noted Date [...] heart d isease Maternal Aunt (Age 47) NE a t 47 Mother (Age 64) NE at 64 Sister Alive no heart diseas e Social History Tobacco Use Types Packs/Day Years Used Date Smoking Tobacco: Never Smokeless Tobacco: Never Tobacco Cessation:Counseling Given: No Alcohol Use Standard Drinks/Week Comments No 0 (1 standard drink = 0.6 oz pur e alcohol) Comments Unknown Sex and Gender Information Value Date Recorded Sex Assigned at Not on file Legal Sex Female 11:48 AM SYS DIR Gender Identity Not on file Sexual Orientation [...] 78.5 kg (173 lb) 01/15/2021 10:59 AM SYS DIR Height 160 cm (5' 3) 01/15/2021 10:59 AM SYS DIR Body Mass Index 30.65 01/15/2021 10:59 AM SYS DIR Plan of Treatment Health Maintenance Due Date [...] 02/11/2028 Insurance MEDICARE PART A [facility] B [facility] [employer] [facility] Care Teams Information Management Officer Relationship Specialty Start Date End Date Nasir Eduardo DO [address] [facility] [address] [place] [address] PCP - General Internal Medicine 12/05/14
--- OUTSIDE RECORDS SUMMARY | 2025-06-15 17:40 | XMS_ITS | Clinical Summary ---
Author Organization [facility] Address [address] [place] [id number] Care Team Providers Care Printed Circuit Board Panels Developer Name Role Phone Unavailable Primary Care Provider [...]
[2025-06-15] MEDS: HYDROcodone/acetaminophen (*CRX) 5-325 MG TABLET 1 TAB PO (17:58)
== END 2025-06-15 19:19 | disposition home or self-care (01) ==
PROVIDERS: Registered Nurse; Emergency Provider Emergency Medicine; PCP Internal Medicine
DX: S52.614A Nondisplaced fracture of right ulna styloid process, initial encounter for closed fracture (principal); S52.551A Other extraarticular fracture of lower end of right radius, initial encounter for closed fracture; S00.83XA Contusion of other part of head, initial encounter; S60.222A Contusion of left hand, initial encounter; S60.221A Contusion of right hand, initial encounter; I10 Essential (primary) hypertension; I48.20 Chronic atrial fibrillation, unspecified; E11.9 Type 2 diabetes mellitus without complications; E78.00 Pure hypercholesterolemia, unspecified; J45.909 Unspecified asthma, uncomplicated; G47.33 Obstructive sleep apnea (adult) (pediatric); M85.80 Other specified disorders of bone density and structure, unspecified site; Z79.899 Other long term (current) drug therapy; Z79.01 Long term (current) use of anticoagulants; Z79.84 Long term (current) use of oral hypoglycemic drugs; M19.011 Primary osteoarthritis, right shoulder; M19.042 Primary osteoarthritis, left hand; W18.39XA Other fall on same level, initial encounter
CPT/HCPCS: 29125; 36415; 70450; 72125; 73030; 73100; 73130; 80053; 85025; 85610; 85730; 93005; 99284; A4565; A9270

== ENCOUNTER 2025-06-29 01:35 | Day surgery (SDC) | payer MEDICARE, SELFPAY ==
[2025-06-27 14:13] VITALS: BMI 27.3
--- NOTE | 2025-06-27 14:25 | PC.NURSE ---
Report to the Outpatient Waiting Room, entrance under the green pavilion located off [facility], at time __11:00am on date _06/29/25 . Planned Procedure Time: 1:00pm .? Time changes happen often and if your time is changed the preop area will call you the afternoon before. - You and your visitor will be asked to self-screen and do not enter if you have any COVID symptoms. Please call surgeon if you need to reschedule. - A mask is optional within the hospital at this time. Patients may have clear liquids (water, carbonated beverages, clear teas, apple juice) until 3 hours prior to surgery with a maximum of 20 ounces. - No food from midnight until time of surgery and no smoking, or chewing tobacco (or any form of nicotine). No chewing gum, candy or mints. (10:00am) Take only the following medications with a SIP of water on the morning of surgery: Metoprolol, Oxycodone or tylenol if needed, Ellipta if needed DO NOT STOP ANY OF YOUR OTHER PRESCRIPTION MEDICATIONS PRIOR TO SURGERY EXCEPT THE FOLLOWING Hold all vitamins and supplements for 3 days per anesthesiologist.Date of last dose 06/26/25 Medications to discontinue per physician Pradaxa for [address] Bush/Hilary Date to take last dose___06/26/25 Please no make-up, nail scottish, hairspray, perfume, deodorant, or body powder the day of surgery.? No jewelry (including any body piercings) or valuables the day of surgery, leave them at home.? Please take a shower or bath the night before, or the morning of, surgery with an antibacterial soap.? Wear comfortable, loose fitting clothing.? - Jewelry must be removed prior to entering the operating room.? Rings and piercings that are not removed may be cut off. - The hospital will not accept responsibility for valuables.? - Please leave all valuables, including medications, at home the day of surgery. If you are going home after surgery, a licensed route driver coin machines must drive you home.? - NO public transportation without another adult if you receive anesthesia. - We recommend that an adult stay with you for 24 hours following discharge. - We also recommend that you do not drive, make important decision, drink alcoholic beverages, or take any drugs that were not prescribed by your health care provider for at least 24 hours after your discharge time. Follow any additional instructions given to you from your surgeon. Telephone instructions given to ___Patient and asked if any additional questions and then verbalized understanding. Patient advised to call surgeon office or pre surgery nurse liaison [phone] if any additional questions.
[2025-06-29] VITALS (12 sets, daily range): BP systolic 112–157; BP diastolic 72–96; PULSE 63–95; RESP 10–20; TEMP 36.3–36.4; O2SAT 92–100; BMI 27.3
--- NOTE | ~2025-06-29 | CT_ITS ---
EXAMINATION: CT hip RT wo con DATE: 06/29/2025 16:18 INDICATION: Right hip pain TECHNIQUE: High resolution computed tomography (CT) of the right hip was performed without intravenou s contrast. Additional sagittal and coronal reconstructions were performed. The dose-length product w as 334.85 mGy-cm. COMPARISON: Radiographs dated 06/29/2025 FINDINGS: 6 mm anterolisthesis L4 on L5 with mild associated disc height loss and severe bilateral facet osteoa rthritis. Additional severe lateral facet osteoarthritis at L5-S1. There is moderate bilateral neural foraminal stenosis and mild central canal stenosis at L4-L5. Mild left-sided and minimal right-sided neural from stenosis at L5-S1. Bone alignment is otherwise normal. No fracture. Mild to moderate ost eoarthritis at the bilateral sacroiliac joints. Mild osteoarthritis at the right hip with no joint ef fusion. There is mild diverticulosis along the sigmoid colon without adjacent inflammatory change to suggest diverticulitis. Visualized orbits and the visualized pelvis including the appendix are other garcai normal. There is severe fatty atrophy of the right gluteus minimus and anterior portion of the r ight gluteus medius muscle bellies. No free fluid in the pelvis. No pathologically enlarged right pel blanca or inguinal lymphadenopathy. IMPRESSION: 1. Degenerative skeletal changes in the lower lumbar spine and visualized pelvis. No acute osseous ad enopathy. 2. Severe fatty atrophy of the right crease minimus and anterior right gluteus medius muscle bellies which could be related to chronic denervation change or chronic tears of the distal tendons. Reviewed, dictated and finalized at location A. IMPRESSION: 1. Degenerative skeletal changes in the lower lumbar spine and visualized pelvi s. No acute osseous adenopathy. 2. Severe fatty atrophy of the right crease minimus and anterior right gluteus medius muscle bellies which could be related to chronic denervation change or c hronic tears of the distal tendons.
--- NOTE | ~2025-06-29 | XR_ITS ---
EXAMINATION: XR surgery orthopedic DATE: 06/29/2025 13:50 CDT INDICATION: ORIF RIGHT DISTAL RADIUS FX . TECHNIQUE: 2 fluoroscopic images of the right wrist were obtained during right distal radius fracture ORIF. Fluoroscopy exposure time was 1 minute 15 seconds. Air Kerma 4.39 mGy. DAP 0.87 mGym2. COMPARISON: X-ray right wrist 06/15/2025 FINDINGS/IMPRESSION: Fluoroscopic documentation of right distal radius fracture ORIF. Please refer to the operative note f or complete procedural details. Reviewed, dictated and finalized at location K.
--- NOTE | ~2025-06-29 | XR_ITS ---
EXAMINATION: XR hip RT min 2V DATE: 06/29/2025 15:14 INDICATION: Right hip pain TECHNIQUE: Anteroposterior and cross-table lateral views of the right hip were obtained. COMPARISON: None. FINDINGS: Alignment is normal. No fracture. Mild osteoarthritis at the right hip and sacroiliac joint. These fi ndings along the anterior iliac spine and greater trochanter. Increased lucency of the soft tissues d eep to the gluteal aponeurosis suggesting fatty atrophy of the underlying right gluteus medias and/or minimus muscles. IMPRESSION: 1. No acute osseous abnormality. Reviewed, dictated and finalized at location A.
--- OUTSIDE RECORDS SUMMARY | 2025-06-29 01:37 | XMS_ITS | Clinical Summary ---
Author Organization [facility] Address Formerly [facility] [place] [address] Care Team Providers Care Rolling Machine Tender Name Role Phone Gilmar Webb DO Primary Care Provider [phone] Encounters Date Type Department Care Team Description 06/19/2025 3:25 PM CDT - 06/19/2025 11:59 PM CDT [place] [address] [place] [address] Bear Richard MD Discharge Disposition: Home or Self Care (Routine Discharge) 06/19/2025 Travel from Last 3 Months Social History Tobacco Use Types Packs/Day Years Used Date Smoking Tobacco: Never Assessed Comments Unknown Sex and Gender Information Value Date Recorded Sex Assigned at Female 06/19/2025 12:41 PM CDT Legal Sex Female 7:19 PM CDT Gender [...] 2003 Zoster Vaccines (1 of 2) 2003 Annual Medicare Wellness Visit 2018 Dexa Scan (General) 2018 COVID-19 Vaccine ( [...] Procedure Name Priority Date/Time Associated Diagnosis Comments CT HIP AUSTEN WO CON STAT 06/19/2025 3:5 0 PM CDT Bilateral hip pain from Last 3 Months Results * CT HIP AUSTEN WO CON (06/19/2025 3:50 PM CDT) Anatomical Region Laterality Modality Undefined Computed Tomogra phy 06/19/2025 4:17 PM CDT Impressions 06/19/2025 4:25 PM CDT IMPRESSION: Small fracture line of the left lateral acetabular roof. Based on cortication, possibly related to old injury. Difficult to exclude acute small fracture. Correlation with tenderness recommended. If significant clinical concern for acute fracture at this site, follow-up with MRI appropriate as well. Moderate bilateral hip osteoarthritis. Multifocal moderate to severe muscular atrophy bilaterally, detailed in the body of the report. Please note, posterior pelvic structures in the pubic symphysis are excluded. Dedicated pelvis MRI or CT may be of benefit to evaluate for occult fracture. Ordered By: BEAR RICHARD Interpreted By: Nikita Conrad, 06/19/2025 4:17 PM Narrative 06/19/2025 4:25 PM CDT [id number] [place] [address] EXAMINATION: CT BILATERAL HIPS WITHOUT CONTRAST EXAM DATE: 06/19/2025 3:44 PM REASON FOR EXAM: Bilateral hip pain and injury COMPARISON: None TECHNIQUE: Axial images through the right hip without intravenous contrast. Axial images through the left hip without intravenous contrast. Multiplanar reconstructions. A dose lowering technique was used for this procedure, which may include, but is not limited to, dose reduction technique, automated exposure control, iterative reconstruction, ALARA (As Low As Reasonably Achievable), or Image Gently techniques. FINDINGS: Right hip: Severe gluteus medius and minimus atrophy. Moderate gluteus radha atrophy. Mild subcutaneous edema lateral to the right hip. Partial visualization of pelvic viscera demonstrates no abnormal fluid collection or mass. Bones: Moderate right hip osteoarthritis. No evidence of fracture. Left hip: Small fracture line of the lateral acetabular roof, based on cortication, possibly related to old injury. Difficult to exclude acute small fracture. Correlation with tenderness recommended. Femoral head and neck intact. Moderate gluteus medius atrophy. Severe gluteus minimus atrophy. Significant atrophy of the rectus femoris partially imaged as well. Abductor kolby atrophy as well. Moderate osteoarthritis of the left hip. Procedure Note Nikita Conrad MD - 06/19/2025 [facility] [address] [place] [address] EXAMINATION: CT BILATERAL HIPS WITHOUT CONTRAST EXAM DATE: 06/19/2025 3:44 PM REASON FOR EXAM: Bilateral hip pain and injury COMPARISON: None TECHNIQUE: Axial images through the right hip without intravenouscontrast. Axial images through the left hip without intravenous contrast.Multiplanar reconstructions. A dose lowering technique was used for this procedure, which may include,but is not limited to, dose reduction technique, automated exposurecontrol, iterative reconstruction, ALARA (As Low As ReasonablyAchievable), or Image Gently techniques. FINDINGS: Right hip: Severe gluteus medius and minimus atrophy. Moderate gluteusmaximus atrophy. Mild subcutaneous edema lateral to the right hip. Partial visualization of pelvic viscera demonstrates no abnormal fluidcollection or mass. Bones: Moderate right hip osteoarthritis. No evidence of fracture. Left hip: Small fracture line of the lateral acetabular roof, based oncortication, possibly related to old injury. Difficult to exclude acutesmall fracture. Correlation with tenderness recommended. Femoral head andneck intact. Moderate gluteus medius atrophy. Severe gluteus minimus atrophy.Significant atrophy of the rectus femoris partially imaged as well.Abductor kolby atrophy as well. Moderate osteoarthritis of the left hip. IMPRESSION: Small fracture line of the left lateral acetabular roof. Based oncortication, possibly related to old injury. Difficult to exclude acutesmall fracture. Correlation with tenderness recommended. If significantclinical concern for acute fracture at this site, follow-up with MRIappropriate as well. Moderate bilateral hip osteoarthritis. Multifocal moderate to severe muscular atrophy bilaterally, detailed inthe body of the report. Please note, posterior pelvic structures in the pubic symphysis areexcluded. Dedicated pelvis MRI or CT may be of benefit to evaluate foroccult fracture. Ordered By: BEAR RICHARD Interpreted By: Nikita Conrad, 06/19/2025 4:17 PM us Bear Richard MD CT Final Result from Last 3 Months Insurance [facility] Care Teams Rolling Machine Tender Relationship Specialty Start Date End Date Gilmar Webb DO [address] [address] PCP - General INTERNAL MEDICINE 06/19/25
--- OUTSIDE RECORDS SUMMARY | 2025-06-29 01:37 | XMS_ITS | Clinical Summary ---
Author Organization [facility] Address [address] [place] [address] Care Team Providers Care Wireless Technician Name Role Phone Nasir Eduardo Anoop RODRIGUEZ Primary Care Provider Source Comments [facility],non-owned Affiliates and Associated Physician Practices is amultiple site organization consisting of ambulatory clinics and hospital sitesin [place], [place], [place]. This disclosure is being madepursuant to the Care Everywhere program and may not contain all information available regarding this patient. Last updated 18.[facility] Allergies Active Allergy Reactions Criticality Noted Date [...] migh t be different from the original. Sawdust Machine Operator- Dr. Riley Bush Problem Noted Date Diagnosed [...] of M I Mother (Age 64) of [place] Sister Alive no heart dz Social History [...] Comments Blood Pressure 124/80 12/11/2020 11:40 AM CHIROPRACTIC PHYSICIAN Pulse 78 12/11/2020 11:40 AM CHIROPRACTIC PHYSICIAN Temperature 37.6 C (99.7 F) 05/01/2018 11:47 AM CDT Respiratory Rate 12 10/07/2019 8:04 AM CHIROPRACTIC PHYSICIAN Oxygen Saturation 99% 12/11/2020 11:40 AM CHIROPRACTIC PHYSICIAN Inhaled Oxygen Concentration - - Weight 78.9 kg (174 lb) 12/11/2020 11:40 AM CHIROPRACTIC PHYSICIAN Height 160 cm (5' 3) 12/11/2020 11:40 AM CHIROPRACTIC PHYSICIAN Body Mass Index 30.82 12/11/2020 11:40 AM CHIROPRACTIC PHYSICIAN Plan of Treatment Health Maintenance Due Date [...] COMPREHENSIVE METABOLIC PANEL Routine 10/03/2019 9:51 AM CHIROPRACTIC PHYSICIAN Essential hypertension Mixed hyperlipidemia from Last 3 Months or Most Recently Relevant to Health Maintenance Results * (ABNORMAL) COMPREHENSIVE METABOLIC PANEL (10/03/2019 9:51 AM CHIROPRACTIC PHYSICIAN) Glucose 156(H) 65 - 99 mg/dL [facility] [...] BLOOD SPECIMEN / Unknown 10/03/2019 9:51 AM CHIROPRACTIC PHYSICIAN 10/03/2019 Narrative Resulting Agency Comment Lab Testing performed at[facility] [address] [facility] [id number] Riley Bush MD LAB - CHEMISTRY ORDERABLES F inal Result [facility] INSURANCE BILL [address] [place] [address] from Last 3 Months or Most Recently Relevant to Health Maintenance Insurance MEDICARE COMMERCIAL GENERIC MEDICARE [facility] * Guarantor: AUREA GALVAN Account Type Relation to Patient Date of Phone Billing Address Personal/Family [address] [place] [address] MEDICARE MEDICARE SUPPLEMENT [employer] GENERIC * Guarantor: AUREA GALVAN Account Type Relation to Patient Date of Phone Billing Address Personal/Family [address] [id number] MEDICARE MEDICARE SUPPLEMENT [place] GENERIC * Guarantor: AUREA GALVAN Account Type Relation to Patient Date of Phone Billing Address Personal/Family [address] [place] [address] MEDICARE MEDICARE SUPPLEMENT [employer] GENERIC Care Teams Wireless Technician Relationship Specialty Start Date End Date Nasir Eduardo DO [address] [facility] [facility] [address] [place] [address] PCP - General Internal Medicine 09/25/15
--- OUTSIDE RECORDS SUMMARY | 2025-06-29 01:37 | XMS_ITS | Clinical Summary ---
Author Organization [facility] Address [address] [place] [address] Phone Care Team Providers Care Nurse'S Companion Name Role Phone Nasir Eduardo DO Primary Care Provider [phone] Allergies Active Allergy Reactions Criticality Noted Date [...] migh t be different from the original. Family Dentist - Dr. Riley Bush Problem Noted Date [...] heart d isease Maternal Aunt (Age 47) [place] a t 47 Mother (Age 64) [place] at 64 Sister Alive no heart diseas e Social History Tobacco Use Types Packs/Day Years Used Date Smoking Tobacco: Never Smokeless Tobacco: Never Tobacco Cessation:Counseling Given: No Alcohol Use Standard Drinks/Week Comments No 0 (1 standard drink = 0.6 oz pur e alcohol) Comments Unknown Sex and Gender Information Value Date Recorded Sex Assigned at Not on file Legal Sex Female 11:48 AM HEEL SHAPER Gender Identity Not on file Sexual Orientation [...] 78.5 kg (173 lb) 01/15/2021 10:59 AM HEEL SHAPER Height 160 cm (5' 3) 01/15/2021 10:59 AM HEEL SHAPER Body Mass Index 30.65 01/15/2021 10:59 AM HEEL SHAPER Plan of Treatment Health Maintenance Due Date [...] (1 of 2) 2003 OSTEOPOROSIS SCREENING 2018 Preventative Visit- Commercial 11/16/2024 INFLUENZA VACCINE (#1) 2025 RSV VACCINE (60+ or ) (1 - 1-dose 75+ series) 02/11/2028 Insurance MEDICARE PART A AND B [facility] [employer] [facility] Care Teams Nurse'S Companion Relationship Specialty Start Date End Date Nasir Eduardo DO [address] [facility] [address] [place] [address] PCP - General Internal Medicine 12/05/14
[2025-06-29] MEDS: VANCOMYCIN HCL 1,000 MG in SODIUM CHLORIDE 0.9% IV 250 ML 250 MG IVPB (12:00)
[2025-06-29] MEDS: KETOROLAC 15 MG/ML VIAL (*BKC) IV PUSH (12:02)
[2025-06-29 12:15] LABS: Digoxin < 0.5 ng/mL (0.8-2.0)
--- NOTE | 2025-06-29 12:19 | P.PNAN_ITS ---
Anes - Initial Pre Proc Eval Procedure: Operation Date: 06/29/25 13:00 Proposed Procedures p Open Reduction Internal Fixation Right Distal Radius Fracture - Bear Richard MD Date/Time: 06/29/25 12:19 Surgeon: Bear Richard MD Pre Op Diagnosis: right wrist pain Patient Data Age: 70 Gender: F Height: 1.6 m Weight: 70 kg Allergies Allergy/AdvReac Type Severity Reaction Status Date / Time topiramate (From [employer] AdvReac Intermediate HAIR LOSS Verified 06/29/25 12:29 Home Medications ?Medication ?Instructions ?Recorded ?Confirmed ?Type atorvastatin 40 mg tablet 40 mg PO HS 01/28/20 06/27/25 History digoxin 125 mcg (0.125 mg) tablet 125 mcg PO DAILY 01/28/20 06/29/25 History metoprolol tartrate 100 mg tablet 200 mg PO BID 01/28/20 06/29/25 History fluticasone propionate 50 1 spray intranasal BID #16 grams 03/11/23 06/27/25 Rx mcg/actuation nasal spray,suspension (Flonase Allergy Relief) dabigatran etexilate 150 mg capsule 150 mg PO BID 05/11/24 06/29/25 History fluticasone furoate 100 1 inh inhalation Q24H PRN 05/11/24 06/27/25 History mcg-vilanterol 25 mcg/dose Shortness Of Breath inhalation powder (Breo Ellipta) losartan 100 mg tablet 100 mg PO DAILY 05/11/24 06/27/25 History paroxetine HCl 10 mg tablet 10 mg PO .PM 05/11/24 06/27/25 History verapamil 120 mg 24 hr 80 mg PO QPM 05/11/24 06/27/25 History capsule,extended release blood-glucose,diamond broker,cont #1 ea 07/21/24 06/27/25 Rx (FreeStyle Mateo 3 [place]) blood-glucose sensor (FreeStyle #6 ea 03/14/25 06/27/25 Rx Mateo 3 Plus Sensor device) empagliflozin 12.5 mg-linaglipt 2 tablet (2 x 12.5-2.5-1,000 mg) 03/14/25 06/27/25 Rx 2.5 mg-metform ER 1,000 mg PO QAM 90 days #180 ea tablet,24hr (Trijardy XR) acetaminophen 500 mg tablet 1,000 mg (2 x 500 mg) PO Q6H PRN 06/15/25 06/29/25 Rx (Tylenol Extra Strength) pain #50 tabs oxycodone 5 mg tablet 5 mg PO Q6H PRN pain #14 tabs 06/15/25 06/27/25 Rx azelastine 137 mcg (0.1 %) nasal See Rx Instructions .Route 06/20/25 06/27/25 Rx spray .COMPLEX #90 mL cholecalciferol (vitamin D3) 10 10 mcg PO DAILY 06/27/25 06/29/25 History mcg (400 unit) tablet (Delta D3) melatonin 2.5 mg-magnesium 42 1 tablet PO .PM sleep 06/27/25 06/27/25 History mg-ashwaganda xt 62.5 mg chewable tablet (Sleep Well Gummy) Laboratory Tests 06/29/25 06/29/25 11:36 11:58 POC Capillary Glucose 120 H mg/dl (65-105) C-Reactive Protein Pending Digoxin < 0.5 L ng/mL (0.8-2.0) Patient hx anesthesia problems: none Family hx anesthesia problems: none Results Review: All pre-operative results and documents have been reviewed as part of the pre- operative evaluation. [facility] Past Medical History Medical History Colon cancer screening Trigger finger, right middle finger Paroxysmal atrial fibrillation TONEY (obstructive sleep apnea) Hx of joint terminal attack controller use of blood thinners Essential (primary) hypertension Body mass index (BMI) 23 or greater (08/23/19) Antiplatelet or antithrombotic long-term use Mass of skin of left shoulder Osteopenia Type 2 diabetes mellitus with hyperglycemia, without long-term current use of insulin Spinal stenosis of lumbar region Sleep apnea Hypercalcemia Type 2 diabetes mellitus Seasonal allergies Hypertension Afib Asthma Headache Vision loss Chronic atrial fibrillation Hyperglycemia Pure hypercholesterolemia, unspecified Spinal cord ependymoma Surgical History Surgical History H/O excision of mass excision of 10 cm left posterior shoulder mass, layered closure 10/29/22 History of surgical procedure on eye proper using laser Family History Family History Father Family history of chronic obstructive pulmonary disease, Onset Age: 87 Sibling Family history of atrial fibrillation Mother Acute myocardial infarction, Onset Age: 64 Other Family history of tuberculosis Social History Social History (Updated 06/26/25 @ 10:26 by Ellen Duong) Smoking status: Never smoker Second hand tobacco smoke exposure: Yes Alcohol intake: never Substance use: never Substance use type: does not use Do You Feel Safe in your Home?: Yes Lack of Transportation: No Lack of Food: Never True Current Housing: I Have Housing Concerned About Future Housing: No Difficulty Paying Gas/Electric Bills: No Difficulty Paying for Meds: No Currently Unemployed: No Education: High School Diploma/GED Difficulty w/ Childcare or Family Care: No Living arrangements: alone Occupation/Education: occupation Additional occupation/education comments: [employer] Gender identity (if verbalized by the patient): Female Sexual Orientation (if Verbalized by the Patient): Straight or Heterosexual Spiritual care concerns: No Anes - Eval Final PreProcedure Day of Procedure 06/29/25 12:19 Patient weight: overweight Heart: regular rate and rhythm Lungs: clear to auscultation Airway: Mallampati scale class II Neurological: alert and oriented Last oral intake: >/= 8 hours ASA classification: III Emergent: no Anesthetic plan: proceed Anesthesia type and monitoring: general LMA and standard monitoring Results Review: All pre-operative results and documents have been reviewed as part of the pre- operative evaluation. Informed Consent: The patient's anesthetic plan and its attendant risks and benefits were discussed with the patient/family/POA. Questions were solicited and answers provided to the satisfaction of the patient/family/POA.
[2025-06-29 12:28] LABS: CRP < 0.5 mg/dL (<1.0)
--- NOTE | 2025-06-29 13:00 | PM.IMHP ---
H&P: HPI History of Present Illness Date/Time: 06/29/25 13:00 Chief Complaint: Right Distal Radius Fx (RT Wrist Pain) Narrative: Patient is a 70-year-old female with fall at home on 06/15/25. She reports she was walking towards her washer and fell for an unknown reason. Patient is unsure whether not she lost consciousness and is unsure what she hit when she fell. Patient reports she does take a blood thinner due to her history of AFib. 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 Essential (primary) hypertension Body mass index (BMI) 23 or greater (08/23/19) Antiplatelet or antithrombotic long-term use Mass of skin of left shoulder Osteopenia Type 2 diabetes mellitus with hyperglycemia, without long-term current use of insulin Spinal stenosis of lumbar region Sleep apnea Hypercalcemia Type 2 diabetes mellitus Seasonal allergies Hypertension Afib Asthma Headache Vision loss Chronic atrial fibrillation Hyperglycemia Pure hypercholesterolemia, unspecified Spinal cord ependymoma Surgical History Surgical History H/O excision of mass excision of 10 cm left posterior shoulder mass, layered closure 10/29/22 History of surgical procedure on eye proper using laser Family History Family History Father Family history of chronic obstructive pulmonary disease, Onset Age: 87 Sibling Family history of atrial fibrillation Mother Acute myocardial infarction, Onset Age: 64 Other Family history of tuberculosis Social History Social History (Updated 06/26/25 @ 10:26 by Ellen Duong) Smoking status: Never smoker Second hand tobacco smoke exposure: Yes Alcohol intake: never Substance use: never Substance use type: does not use Do You Feel Safe in your Home?: Yes Lack of Transportation: No Lack of Food: Never True Current Housing: I Have Housing Concerned About Future Housing: No Difficulty Paying Gas/Electric Bills: No Difficulty Paying for Meds: No Currently Unemployed: No Education: High School Diploma/GED Difficulty w/ Childcare or Family Care: No Living arrangements: alone Occupation/Education: occupation Additional occupation/education comments: [employer] Gender identity (if verbalized by the patient): Female Sexual Orientation (if Verbalized by the Patient): Straight or Heterosexual Spiritual care concerns: No Meds Home Medications and Allergies Home Medications ?Medication ?Instructions ?Recorded ?Confirmed ?Type atorvastatin 40 mg tablet 40 mg PO HS 01/28/20 06/27/25 History digoxin 125 mcg (0.125 mg) tablet 125 mcg PO DAILY 01/28/20 06/29/25 History metoprolol tartrate 100 mg tablet 200 mg PO BID 01/28/20 06/29/25 History fluticasone propionate 50 1 spray intranasal BID #16 grams 03/11/23 06/27/25 Rx mcg/actuation nasal spray,suspension (Flonase Allergy Relief) dabigatran etexilate 150 mg capsule 150 mg PO BID 05/11/24 06/29/25 History fluticasone furoate 100 1 inh inhalation Q24H PRN 05/11/24 06/27/25 History mcg-vilanterol 25 mcg/dose Shortness Of Breath inhalation powder (Breo Ellipta) losartan 100 mg tablet 100 mg PO DAILY 05/11/24 06/27/25 History paroxetine HCl 10 mg tablet 10 mg PO .PM 05/11/24 06/27/25 History verapamil 120 mg 24 hr 80 mg PO QPM 05/11/24 06/27/25 History capsule,extended release blood-glucose,food preservation scientist,cont #1 ea 07/21/24 06/27/25 Rx (FreeStyle Mateo 3 Creede) blood-glucose sensor (FreeStyle #6 ea 03/14/25 06/27/25 Rx Mateo 3 Plus Sensor device) empagliflozin 12.5 mg-linaglipt 2 tablet (2 x 12.5-2.5-1,000 mg) 03/14/25 06/27/25 Rx 2.5 mg-metform ER 1,000 mg PO QAM 90 days #180 ea tablet,24hr (Trijardy XR) acetaminophen 500 mg tablet 1,000 mg (2 x 500 mg) PO Q6H PRN 06/15/25 06/29/25 Rx (Tylenol Extra Strength) pain #50 tabs oxycodone 5 mg tablet 5 mg PO Q6H PRN pain #14 tabs 06/15/25 06/27/25 Rx azelastine 137 mcg (0.1 %) nasal See Rx Instructions .Route 06/20/25 06/27/25 Rx spray .COMPLEX #90 mL cholecalciferol (vitamin D3) 10 10 mcg PO DAILY 06/27/25 06/29/25 History mcg (400 unit) tablet (Delta D3) melatonin 2.5 mg-magnesium 42 1 tablet PO .PM sleep 06/27/25 06/27/25 History mg-ashwaganda xt 62.5 mg chewable tablet (Sleep Well Gummy) Allergies Allergy/AdvReac Type Severity Reaction Status Date / Time topiramate (From Topiragen) AdvReac Intermediate HAIR LOSS Verified 06/29/25 12:29 Vital Signs Vital Signs - 24 hr 06/29/25 11:20 Temperature 36.3 C L Pulse Rate 84 Respiratory Rate 16 Blood Pressure 112/72 Pulse Oximetry 97 Oxygen Delivery Room Air Exam Narrative: Right Wrist in splint with intact sensation to all digits. Good cap refill. Right periorbital ecchymosis. Const: General: cooperative, healthy appearing, comfortable, well developed, alert and awake Nutritional Appearance: average body habitus and well nourished Orientation/consciousness: patient oriented x3 Assessment and Plan Assessment and plan (1) Wrist fracture, right: Code(s): S62.101A - Fracture of unspecified carpal bone, right wrist, initial encounter for closed fracture Status: Acute Assessment and Plan: Right Distal Radius fracture with significant displacement. Date of injury: 06/15/25 - Risks benefits alternatives and complications discussed with patient and her son. They include but are not limited to: infection, nerve injury, blood vessel injury, hardware irritation requiring removal. They understand and she agrees to proceed.
--- NOTE | 2025-06-29 13:06 | WPDHPUPDATE1 ---
History and Physical Update Update Date/Time: 06/29/25 13:06 History and Physical has been reviewed, including an updated exam of the patient. There are NO changes in the patient's condition. Risks, benefits, and alternatives have been discussed and questions answered. Patient agrees to proceed with procedure. Right Distal Radius open reduction with plate and screw fixation.
[2025-06-29] MEDS: ceFAZolin 2 GM in SODIUM CHLORIDE 0.9% IV 50 ML 100 ML IVPB (13:12)
[2025-06-29] MEDS: LIDO 1%/EPINEPHRINE 1:100,000 50 ML VIAL 15 ML INFILTRATE (14:28)
[2025-06-29] MEDS: LACTATED RINGERS 1,000 ML 30 ML IV CONT (14:39)
--- NOTE | 2025-06-29 14:46 | W.PM.PROC2 ---
Procedure Note - Detailed Date of Procedure 06/29/25 Pre-op Diagnosis Right Wrist distal radius fracture greater than 3 part, unstable Post-op Diagnosis Same Procedure Performed 1. Right Distal radius fracture greater than 3 part open reduction with plate and screw fixation 2. Fluoroscopy intra-op 3. Short arm splint application Surgeon Bear Richard MD Anesthesia General Indications 70 yr old female with Right Distal Radius fracture Findings Right Distal Radius fracture Description of Procedure After obtaining consent from the patient to the holding area with regards to a right distal radius fracture open reduction internal fixation, I marked the right upper extremity. I did discuss the case again with the patient and her son. The risks benefits alternatives and complications were discussed which include but not limited to infection nerve blood vessel injury as well as hardware irritation that may require a 2nd surgery in the future for hardware removal they agree to proceed. The patient was then brought to the operating room placed in supine position which time she underwent general anesthesia. Right upper extremity was then prepped and draped in the standard sterile fashion with a proximal arm tourniquet. Time-out was performed prior to the procedure to verify correct patient correct site of surgery correct procedure and to verify that indeed 2 g of IV Ancef were administered within 1 hour of the procedure. Esmarch exsanguination was used tourniquet was elevated to 250 mmHg. A standard volar incision was made centered over the FCR tendon dissection was carried down the FCR tendon sheath was easily identified sharply incised and then I incised the fascia just deep to the FCR tendon I thinned out the dissected deeper exposing the pronator quadratus and dissected this off of the anterior aspect of the distal radius to identify the fracture site. There was already callus formation at the fracture site. I then removed the callus and then performed a open reduction with volar flexion and radial deviation and use a provisional K-wire in a retrograde fashion going through the radial stylus in order to hold the fracture position. I then placed the volar plate which was an [facility]u [facility] narrow distal locking plate. I then proceeded to place my shaft screw 1st verify position of the plate on both AP and lateral views and then proceeded to place additional screws distally as well as over the shaft. All of the screws that were placed distally were locking pegs a smooth in the river verified as being intraosseous and not violating the dorsal cortex on all views. I then irrigated copiously injected with lidocaine into the subcutaneous tissues close the incision site using Monocryl suture for the dermal layer and then place. I then I placed Steri-Strips. Four fluoroscopy was used during the procedure to identify and confirm a closed a anatomic reduction. I then proceeded to place a short-arm splint with a volar Orthoglass and then bandages in a sterile fashion tourniquet was then deflated. She was then transferred to the recovery room in stable condition. See the patient back in about 10 days for a wound check and removal of the splint. Implants Accu Med volar plate narrow distal locking Estimated Blood Loss 10 Drains No Packing No Pathology None sent Complications No immediate complications Condition Stable Disposition PACU
[2025-06-29] MEDS: fentaNYL CITRATE INJ (*CRX) 100 MCG/2 ML VIAL 25 MCG IV PUSH ×4 (15:50→16:00)
[2025-06-29] MEDS: oxyCODONE (*CRX) 5 MG/5 ML ORAL SOLN IR PO (16:33)
== END 2025-06-29 17:26 | disposition home or self-care (01) ==
PROVIDERS: Anesthesiology; PCP Internal Medicine; Visit Provider Orthopaedic Surgery
PROC: (CPT 25575; principal; 2025-06-29 13:00)
DX: S52.551A Other extraarticular fracture of lower end of right radius, initial encounter for closed fracture (principal); W18.30XA Fall on same level, unspecified, initial encounter; I10 Essential (primary) hypertension; E11.65 Type 2 diabetes mellitus with hyperglycemia; E83.52 Hypercalcemia; J45.909 Unspecified asthma, uncomplicated; E78.00 Pure hypercholesterolemia, unspecified; I48.0 Paroxysmal atrial fibrillation; G47.33 Obstructive sleep apnea (adult) (pediatric); M85.88 Other specified disorders of bone density and structure, other site; M48.061 Spinal stenosis, lumbar region without neurogenic claudication; Z79.84 Long term (current) use of oral hypoglycemic drugs; Z79.891 Long term (current) use of opiate analgesic; Z79.51 Long term (current) use of inhaled steroids; Z98.890 Other specified postprocedural states; Z87.39 Personal history of other diseases of the musculoskeletal system and connective tissue; Z82.49 Family history of ischemic heart disease and other diseases of the circulatory system
CPT/HCPCS: 25607; 36415; 73502; 73700; 80162; 82948; 86140; 99199; J0690; A9270; J1100; J1171; J1885; J2003; J2004; J2405; J2704; J3010; J3373; J7050; J7120